=== PATIENT | female | born 1960 | race Caucasian/White ===

== ENCOUNTER 2016-10-06 02:12 | Emergency (ER) | payer BC ==
[2016-10-06] MEDS ORDERED: NS 0.9% 1000 ML* 1,000 ML IV ONE (02:25)
--- NOTE | 2016-10-06 02:44 | ED ---
Tyrel Dubois Billy, scribed for Robb Lee MD on 10/06/16 at 0244 . HPI Chest Pain - HPI Summary HPI Summary: Patient is a 56 year-old female coming to [facility] presenting with acute onset of left-lateral chest pressure today. She denies any abdominal pain or N/V, but she states she has had multiple episodes of diarrhea for the last 2 weeks. - History of Current Complaint Chief Complaint: EDChestPainROMI Time Seen by Provider: 10/06/16 02:20 Hx Obtained From: Patient Onset/Duration: Started Hours Ago, Still Present Timing: Intermittent Initial Severity: Moderate Current Severity: Moderate Chest Pain Location: Left Lateral Chest Pain Radiates: No Character: Pressure/Squeezing Aggravating Factor(s): Nothing Alleviating Factor(s): Nothing Associated Signs and Symptoms: Positive: Palpitations, Other: - near-syncope. Negative: Nausea, Abdominal Pain, Vomiting - Allergy/Home Medications Allergies/Adverse Reactions: Allergies Allergy/AdvReac Type Severity Reaction Status Date / Time No Known Allergies Allergy Verified 09/27/16 12:43 PMH/Surg Hx/FS Hx/Imm Hx Endocrine/Hematology History: Denies: Hx Diabetes, Hx Thyroid Disease Cardiovascular History: Denies: Hx Congestive Heart Failure, Hx Deep Vein Thrombosis, Hx Hypertension , Hx Myocardial Infarction, Hx Pacemaker/ICD Respiratory History: Denies: Hx Asthma, Hx Chronic Obstructive Pulmonary Disease (COPD), Hx Lung Cancer, Hx Pneumonia, Hx Pulmonary Embolism GI History: Denies: Hx Gall Bladder Disease, Hx Gastrointestinal Bleed, Hx Ulcer, Hx Urosepsis History: Denies: Hx Kidney Stones, Hx Renal Disease Neurological History: Denies: Hx Dementia, Hx Migraine, Hx Seizures, Hx Transient Ischemic Attacks (TIA) Psychiatric History: Denies: Hx Anxiety, Hx Depression, Hx Schizophrenia, Hx Bipolar Disorder - Cancer History Hx Chemotherapy: No Hx Radiation Therapy: No - Surgical History Surgery Procedure, Year, and Place: L knee; tubal ligation Infectious Disease History: No Infectious Disease History: Denies: Hx Hepatitis, Hx Human Immunodeficiency Virus (HIV), History Other Infectious Disease, Traveled Outside the [place] in Last 30 Days - Family History Known Family History: Positive: Cardiac Disease - father Family History: Mother: Breast CA. Father: Heart disease. Sister: Lupus. Ulcer. - Social History Alcohol Use: Occasionally Hx Substance Use: No Substance Use Type: Reports: None Hx Tobacco Use: No Smoking Status (MU): Never Smoked Tobacco Review of Systems Positive: Palpitations, Chest Pain Positive: Diarrhea. Negative: Abdominal Pain, Vomiting, Nausea All Other Systems Reviewed And Are Negative: Yes Physical Exam Triage Information Reviewed: Yes Vital Signs On Initial Exam: Initial Vitals Temp Pulse Resp BP Pulse Ox 98.2 F 73 14 135/75 97 10/06/16 02:29 10/06/16 02:29 10/06/16 02:29 10/06/16 02:10/06/16 02:29 Vital Signs Reviewed: Yes Appearance: Positive: Well-Appearing, No Pain Distress Skin: Positive: Warm Eyes: Positive: CAITY ENT: Positive: Hearing grossly normal Neck: Positive: Supple Respiratory/Lung Sounds: Positive: Clear to Auscultation, Breath Sounds Present Cardiovascular: Positive: Normal. Negative: Murmur Abdomen Description: Positive: Nontender, No Organomegaly, Soft Bowel Sounds: Positive: Present Musculoskeletal: Positive: Strength/ROM Intact Neurological: Positive: Sensory/Motor Intact, Alert, Oriented to Person Place, Time Psychiatric: Positive: Affect/Mood Appropriate AVPU Assessment: Alert Diagnostics - Vital Signs Vital Signs Temp Pulse Resp BP Pulse Ox 10/06/16 02:29 98.2 F 73 14 135/75 97 - Laboratory Result Diagrams: 10/06/16 02:15 10/06/16 02:15 Lab Statement: Any lab studies that have been ordered have been reviewed, and results considered in the medical decision making process. Re-Evaluation - Re-Evaluation First Eval Change: Improved Chest Pain Course/Dx - Diagnoses Provider Diagnoses: Diarrhea, Chest pain Discharge - Discharge Plan Condition: Stable Disposition: HOME Patient Education Materials: Chest Pain (ED) Referrals: Eugene Sánchez MD [Primary Care Provider] - The documentation as recorded by the Tyrel fine Billy accurately reflects the service I personally performed and the decisions made by , Robb Lee MD.
[2016-10-06 03:30] LABS: Urine Bacteria Absent (Absent); Urine Bilirubin Negative (Negative); Urine Glucose Negative (Negative); Urine Nitrite Negative (Negative)
[2016-10-06 03:36] LABS: Albumin 3.9 g/dL (3.2-5.2); BUN/Creatinine Ratio 18.5 (8-20); C Reactive Protein 4.68 mg/L (< 5.00); EGFR African American 94.1 (>60); EGFR Non-African American 73.1 (>60); Globulin 2.8 g/dL (2-4); Potassium 3.2 mmol/L (3.5-5.0); Total Bilirubin 1.3 mg/dL (0.2-1.0); Total Protein 6.7 g/dL (6.4-8.9)
[2016-10-06 03:37] LABS: Hematocrit 38 % (35-47); Hemoglobin 13.2 g/dl (12.0-16.0); Mean Corpuscular HGB Conc 35 g/dl (31-36); Mean Corpuscular Hemoglobin 32 pg (27-31); Mean Corpuscular Volume 92 fL (80-97); Mean Platelet Volume 9 um3 (7.4-10.4); Red Blood Count 4.12 10^6/ul (4.0-5.4); Red Cell Distribution Width 13 % (10.5-15); White Blood Count 4.7 10^3/ul (3.5-10.8)
[2016-10-06 05:12] VITALS: BP 135/72
--- NOTE | 2016-10-06 07:52 | RAD ---
INDICATION: Chest pain and shortness of breath COMPARISON: Similar chest x-ray dated December 23, 2015 TECHNIQUE: PA and lateral views of the chest were obtained. FINDINGS: The heart and mediastinum are normal in size and contour. The lungs are grossly clear. There is no evidence of large pleural effusion. Visualized bones are normal for the patient's age. There is no radiographic evidence of free air beneath the diaphragm IMPRESSION: No radiographic evidence of acute cardiopulmonary disease.
== END 2016-10-06 04:30 | disposition home or self-care (01) ==
LOC: ED 02:12
DX: R00.2 Palpitations (principal); R10.9 Unspecified abdominal pain; R07.9 Chest pain, unspecified; R19.7 Diarrhea, unspecified
CPT/HCPCS: 36415; 71020; 80053; 81003; 81015; 83605; 83690; 83735; 84484; 85025; 86140; 96360; 99283

== ENCOUNTER 2017-02-10 13:08 | Emergency (ER) | payer BC ==
[2017-02-10 13:20] VITALS: BP 137/79
[2017-02-10] MEDS ORDERED: Aspirin Low Dose CHEW TAB* 81 MG PO ONE (13:54)
--- NOTE | 2017-03-13 23:15 | UC ---
Brooklynn Dubois Matthew, scribed for Candice Long MD on 02/10/17 at 1353 . Cardiac HPI - HPI Summary HPI Summary: A 56 y/o female presents to with chest pain since an hour ago, which has resolved. The pain was rated 6/10 in severity and described as pressure. The symptoms started with numbness of the left arm and she continues to have constant arm numbness. She's also having waves of warmth intermittently that lasts for approximately a minute and feels like shes going to pass out. She denies any cardiac Hx. She had a cardiac work-up in September, which returned normal. 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 She also states that two days ago she had a facial blister, which bursted while in the shower. She's unsure of the cause of the blister. PMHx includes shingles. FHx of breast CA - mother sister, and prostate CA - father. Her father of an unknown heart problem. The patient works at [employer] and she only takes vitamins daily. - History of Current Complaint Chief Complaint: UCChestPain Stated Complaint: ARM NUMB FEELS LIKE PASSING OUT Hx Obtained From: Patient Onset/Duration: Sudden Onset, Lasting Hours, Resolved Timing: Intermittent Episodes Lasting: - minutes Initial Severity: Moderate Current Severity: Moderate Pain Intensity: 6 Chest Pain Location: Diffuse Character: Pressure/Squeezing Aggravating: Nothing Alleviating: Nothing Associated Signs & Symptoms: Positive: Chest Pain - described as pressure, Numbness - left arm - Allergy/Home Medications Allergies/Adverse Reactions: Allergies Allergy/AdvReac Type Severity Reaction Status Date / Time No Known Allergies Allergy Verified 02/10/17 13:20 PMH/Surg Hx/FS Hx/Imm Hx Endocrine History Of: Denies: Diabetes, Thyroid Disease, Hyperthyroidism, Hypothyroidism, Dyslipidemia Cardiovascular History Of: Denies: Cardiac Disorders, Hypertension, Pacemaker/ICD, Myocardial Infarction , Congestive Heart Failure, Atrial Fibrillation, Deep Vein Thrombosis, Bleeding Disorders Respiratory History Of: Denies: COPD, Asthma, Bronchitis, Pneumonia, Pulmonary Embolism GI/ History Of: Denies: Gastroesophageal Reflux, Ulcer, Gastrointestinal Bleed, Gall Bladder Disease, Kidney Stones, Diverticulitis, Renal Disease, Urosepsis Neurological History Of: Denies: TIA, CVA, Dementia, Seizures, Migraine Psychological History Of: Denies: Anxiety, Depression, Bipolar Disorder, Schizophrenia, Post Traumatic Stress Disorder Cancer History Of: Denies: Lung Cancer, Colorectal Cancer, Breast Cancer, Prostate Cancer, Cervical Cancer Other History Of: Negative For: HIV, Hepatitis B, Hepatitis C - Surgical History Surgical History: Yes Surgery Procedure, Year, and Place: L knee; tubal ligation - Family History Known Family History: Positive: None, Cardiac Disease - father Family History: Mother: Breast CA. Father: Heart disease. Sister: Lupus. Ulcer. - Social History Alcohol Use: Occasionally Substance Use Type: None Smoking Status (MU): Never Smoked Tobacco - Immunization History Most Recent Influenza Vaccination: 2016 Most Recent Tetanus Shot: utd Review of Systems Constitutional: Other - Intermittent waves of warmth Skin: Negative Eyes: Negative ENT: Negative Respiratory: Negative Cardiovascular: Chest Pain - described as pressure Gastrointestinal: Negative Genitourinary: Negative Motor: Negative Neurovascular: Negative Musculoskeletal: Negative Neurological: Numbness - left arm numbness Psychological: Negative All Other Systems Reviewed And Are Negative: Yes Physical Exam Triage Information Reviewed: Yes Appearance: Well-Nourished Vital Signs: Initial Vital Signs Temp 99 F 02/10/17 13:12 Pulse 69 02/10/17 13:12 Resp 16 02/10/17 13:12 BP 137/79 02/10/17 13:12 Pulse Ox 100 02/10/17 13:12 Vital Signs Reviewed: Yes Eyes: Positive: Conjunctiva Clear ENT: Positive: Normal ENT inspection Neck: Positive: Supple Respiratory: Positive: Chest non-tender, Lungs clear, Normal breath sounds Cardiovascular: Positive: RRR, No Murmur, Pulses Normal, Brisk Capillary Refill Abdomen Description: Positive: Nontender, No Organomegaly, Soft Bowel Sounds: Positive: Present Musculoskeletal Exam: Normal Musculoskeletal: Positive: Strength Intact Neurological Exam: Normal - nonfocal, grossly intact Psychological Exam: Normal - conversing easily and appropriately Skin Exam: Normal - no visible or reported rash - Assessment/Plan Course Of Treatment: Recommed further evaluation and management in the ED. Ms. Mars expresses understanding and agreement. I called the ED to advise. - Clinical Impression Provider Diagnoses: chest pain - Physician Notifications Discussed Patient Care With: Ailyn Archibald ([facility] [place] at 13:58 -- Notified of patient's history and accepts transfer of the patient. Discharge - Discharge Plan Condition: Stable Disposition: TRANS HIGHER LVL OF CARE FAC Discharge Disposition Comment: The patient needs further evaluation at the ED. Referrals: Non Staff,Doctor [Primary Care Provider] - The documentation as recorded by the Brooklynn fine Matthew accurately reflects the service I personally performed and the decisions made by me, Candice Long MD.
== END 2017-02-10 14:25 | disposition short-term general hospital (02) ==
LOC: UCEAST 13:08
DX: R07.89 Other chest pain (principal); R20.0 Anesthesia of skin
CPT/HCPCS: 99213; A9270-GY; G0463

== ENCOUNTER 2017-02-10 14:56 | Observation (INO) | payer BC ==
[2017-02-10] MEDS ORDERED: Aspirin Low Dose CHEW TAB* 81 MG PO ONE (15:34)
--- NOTE | 2017-02-10 16:07 | RAD ---
INDICATION: Chest pain. COMPARISON: Comparison is made with a prior chest x-ray study from October 06, 2016. TECHNIQUE: A portable view of the chest was obtained. FINDINGS: Cardiac and mediastinal contours appear to be within normal limits. The lungs are clear. No pleural effusion is seen. IMPRESSION: NO EVIDENCE FOR ACUTE DISEASE.
[2017-02-10 16:25] LABS: Albumin 4.4 g/dL (3.2-5.2); BUN/Creatinine Ratio 11.3 (8-20); Calcium 9.8 mg/dL (8.6-10.3); EGFR African American 109.5 (>60); EGFR Non-African American 85.2 (>60); Globulin 2.5 g/dL (2-4); Potassium 4.8 mmol/L (3.5-5.0); Total Bilirubin 0.7 mg/dL (0.2-1.0); Total Protein 6.9 g/dL (6.4-8.9)
[2017-02-10 16:32] LABS: Hematocrit 39 % (35-47); Hemoglobin 13.2 g/dl (12.0-16.0); Mean Corpuscular HGB Conc 34 g/dl (31-36); Mean Corpuscular Hemoglobin 32 pg (27-31); Mean Corpuscular Volume 94 fL (80-97); Red Blood Count 4.12 10^6/ul (4.0-5.4); Red Cell Distribution Width 13 % (10.5-15); White Blood Count 4.6 10^3/ul (3.5-10.8)
[2017-02-10 16:33] LABS: Add Diff/Slide Review? Slide Review Added; Comments Flag Yes
[2017-02-10 17:44] LABS: Mean Platelet Volume 10 um3 (7.4-10.4)
--- NOTE | 2017-02-10 18:12 | RAD ---
Indication: Left arm paresthesias. CT of the brain was performed without IV contrast. Ventricular structures are midline. No midline shift is noted. The extra-axial spaces are unremarkable. There is no evidence of intracranial mass or hemorrhage. Mastoid air cells and paranasal sinuses are otherwise unremarkable. IMPRESSION: No evidence of intracranial mass or hemorrhage is noted.
--- NOTE | 2017-02-10 19:56 | HP ---
H&P (Free Text) History and Physical: Date/Time of Evaluation: 02/10/20171954 CC: L arm pressure & pre-syncope HPI: Ms Mars is a 56YO healthy female who was at work this AM around 1100 when she suddenly developed a squeezing/pressure-like sensation in the L arm associated with episodic whole-body flushing, but no chest pain, SOB, nausea, or sweating. Neither has she change in vision/speech/swallow, focal W/N/T, or other issue. She relates a similar episode in September of this year attributed to anxiety. PMedHx denies Ambulatory Orders NK [No Home Medications Reported] 09/27/16 Allergies No Known Allergies Allergy (Verified 02/10/17 13:20) SocHx: no tobacco or recreational drugs, minimal alcohol; works at [employer] ; full code status FamHx: negative for early onset CAD/CVA; Sister passed of bowel perforation. Mother passed of aspiration pneumonia. ROS: as above, otherwise reviewed and all were negative Constitutional: NAD, normally developed, well-nourished white female vitals: Vital Signs Temp 37.6 C 02/10/17 15:15 Pulse 66 02/10/17 20:00 Resp 11 02/10/17 20:00 BP 138/78 02/10/17 20:00 Pulse Ox 98 02/10/17 20:00 Intake & Output 02/09/17 02/10/17 02/10/17 23:59 11:59 23:59 Weight 58.967 kg HEENM: atraumatic; sclera/conjunctiva: non-icteric/clear; hearing: clinically intact; oropharynx: clear, mucosa moist Neck: soft tissue: non-tender; thyroid: normal Pulmonary: clear to auscultation bilaterally, good aeration, no accessory muscle use CV: RR/RR, normal S1S2, no carotid bruit, no jugular venous distention, 2+ B DP/ PT, no edema Abdominal: soft, non-distended, non-tender, no rebound/guarding/rigidity, normoactive bowel sounds, no hepatosplenomegaly or masses, no costovertebral angle tenderness Musculoskeletal: general: grossly intact; gait: stable Integumental: normal appearance and texture of exposed skin Psychiatric orientation: AA&O to PPS affect: calm to mildly anxious mood: pleasant eye contact: good content: reliable responses: timely insight: good Testing: Lab Results 02/10/17 02/10/17 02/10/17 Range/Units 15:50 15:50 15:50 WBC 4.6 (3.5-10.8) 10^3/ul RBC 4.12 (4.0-5.4) 10^6/ul Hgb 13.2 (12.0-16.0) g/dl Hct 39 (35-47) % MCV 94 (80-97) fL MCH 32 H (27-31) pg MCHC 34 (31-36) g/dl RDW 13 (10.5-15) % Plt Count 142 L (150-450) 10^3/ul MPV 10 (7.4-10.4) um3 Neut % (Auto) 63.2 (38-83) % Lymph % (Auto) 25.3 (25-47) % Petroleum % (Auto) 9.0 (1-9) % Eos % (Auto) 1.9 (0-6) % Baso % (Auto) 0.6 (0-2) % Absolute Neuts (auto) 2.9 (1.5-7.7) 10^3/ul Absolute Lymphs (auto) 1.2 (1.0-4.8) 10^3/ul Absolute Monos (auto) 0.4 (0-0.8) 10^3/ul Absolute Eos (auto) 0.1 (0-0.6) 10^3/ul Absolute Basos (auto) 0 (0-0.2) 10^3/ul Absolute Nucleated RBC 0 10^3/ul Nucleated RBC % 0.1 Sodium 142 (133-145) mmol/L Potassium 4.8 (3.5-5.0) mmol/L Chloride 110 (101-111) mmol/L Carbon Dioxide 28 (22-32) mmol/L Anion Gap 4 (2-11) mmol/L BUN 8 (6-24) mg/dL Creatinine 0.71 (0.51-0.95) mg/dL Est GFR ( Amer) 109.5 (>60) Est GFR (Non-Af Amer) 85.2 (>60) BUN/Creatinine Ratio 11.3 (8-20) Glucose 93 (70-100) mg/dL Lactic Acid 1.3 (0.5-2.0) mmol/L Calcium 9.8 (8.6-10.3) mg/dL Total Bilirubin 0.70 (0.2-1.0) mg/dL AST 17 (13-39) U/L ALT 13 (7-52) U/L Alkaline Phosphatase 77 (34-104) U/L Troponin I 0.00 (<0.04) ng/mL Total Protein 6.9 (6.4-8.9) g/dL Albumin 4.4 (3.2-5.2) g/dL Globulin 2.5 (2-4) g/dL Albumin/Globulin Ratio 1.8 (1-3) 05/16/17 Range/Units 18:05 WBC (3.5-10.8) 10^3/ul RBC (4.0-5.4) 10^6/ul Hgb (12.0-16.0) g/dl Hct (35-47) % MCV (80-97) fL MCH (27-31) pg MCHC (31-36) g/dl RDW (10.5-15) % Plt Count (150-450) 10^3/ul MPV (7.4-10.4) um3 Neut % (Auto) (38-83) % Lymph % (Auto) (25-47) % Petroleum % (Auto) (1-9) % Eos % (Auto) (0-6) % Baso % (Auto) (0-2) % Absolute Neuts (auto) (1.5-7.7) 10^3/ul Absolute Lymphs (auto) (1.0-4.8) 10^3/ul Absolute Monos (auto) (0-0.8) 10^3/ul Absolute Eos (auto) (0-0.6) 10^3/ul Absolute Basos (auto) (0-0.2) 10^3/ul Absolute Nucleated RBC 10^3/ul Nucleated RBC % Sodium (133-145) mmol/L Potassium (3.5-5.0) mmol/L Chloride (101-111) mmol/L Carbon Dioxide (22-32) mmol/L Anion Gap (2-11) mmol/L BUN (6-24) mg/dL Creatinine (0.51-0.95) mg/dL Est GFR ( Amer) (>60) Est GFR (Non-Af Amer) (>60) BUN/Creatinine Ratio (8-20) Glucose (70-100) mg/dL Lactic Acid (0.5-2.0) mmol/L Calcium (8.6-10.3) mg/dL Total Bilirubin (0.2-1.0) mg/dL AST (13-39) U/L ALT (7-52) U/L Alkaline Phosphatase (34-104) U/L Troponin I 0.00 (<0.04) ng/mL Total Protein (6.4-8.9) g/dL Albumin (3.2-5.2) g/dL Globulin (2-4) g/dL Albumin/Globulin Ratio (1-3) ECG, personally reviewed: NSR rate 68, no ischemia CXR, personally reviewed: IMPRESSION: NO EVIDENCE FOR ACUTE DISEASE. CT brain WO, personally reviewed: IMPRESSION: No evidence of intracranial mass or hemorrhage is noted. Impression: 56F presenting with possible anginal equivalent for r/o ACS DIAGNOSIS & PLAN Primary possible anginal equivalent r/o ACS : telemetry : eNST in AM : trend troponin : supplemental oxygen : aspirin : metoprolol : supportive care Admission Rational: CDU observation for r/o ACS DVTp: PRAVEEN Code Status: full
[2017-02-10] MEDS ORDERED: Metoprolol Tartrate TAB* 25 MG PO ONE (21:58)
[2017-02-10] MEDS ORDERED: Melatonin (NF) 3 MG TAB PO PRN (22:00)
[2017-02-10] MEDS ORDERED: Ondansetron INJ* 2 MG/ML VIAL IV PRN (22:00)
[2017-02-11] MEDS ORDERED: Omeprazole CAP* 20 MG PO SCH (06:00)
[2017-02-11 07:27] VITALS: BP 119/74
--- NOTE | 2017-02-11 12:22 | RAD ---
Edited for charges. INDICATION: LEFT arm pressure. Near syncope. Family history of heart disease. COMPARISON: No relevant prior exams available on the [facility] PACS for comparison. TECHNIQUE: 10.300 mCi of Tc-99m Myoview were administered IV. SPECT images of the heart were obtained. Later on the same day, under the direction of Dr. Hayward, an exercise stress test was performed. The patient achieved a peak heart rate of 146 bpm, 89 % of the age- predicted maximum. Subsequently, the patient was given an IV injection of 25.700 mCi Tc- 99m Myoview. SPECT images of the heart were obtained and a gated wall motion study was performed. FINDINGS: Gated wall motion images were obtained at stress and demonstrate wall motion to be within normal limits. The calculated left ventricular ejection fraction is 70 % at stress. Estimated LEFT ventricular end diastolic volume is 68 mL. TID 1.06. Based on review of the attenuation corrected and non corrected images the distribution of radiopharmaceutical within the myocardium on the stress and rest images is within normal limits. No fixed or reversible regions of hypoperfusion evident. IMPRESSION: 1. No evidence for stress induced myocardial ischemia or presence of an infarct. 2. Normal left ventricular wall motion and ejection fraction. ASSESSMENT: Low risk Based on imaging criteria from ACC/AHA 2002 Guideline Update for the Management of Patients With Chronic Stable Angina Table 23. Noninvasive Risk Stratification. MTDD
--- NOTE | 2017-02-12 02:29 | DS ---
DISCHARGE SUMMARY: DATE OF ADMISSION: 02/10/17 DATE OF DISCHARGE: 02/11/17 PRIMARY CARE PROVIDER: [facility]. PRINCIPAL DIAGNOSES: Noncardiac chest pain and presyncope. DISCHARGE MEDICATIONS: None. HOSPITAL COURSE: Ms. Mars is a 56-year-old female who has no significant past medical history who presents to the emergency room with complaints of squeezing , pressure like, discomfort in the left arm with episodic whole body flushing. The patient had an episode similar to this in September of this year that was attributed to anxiety. Given her symptoms, the decision was made to admit the patient to rule out an acute coronary syndrome. The patient was ruled out an acute coronary syndrome with serial troponins. She underwent an exercise nuclear stress test on the day of discharge that did not reveal any evidence for stress induced myocardial ischemia or infarct. At this point, it was felt the patient is stable for discharge home. On the day of discharge, the patient was awake, alert, and oriented, sitting up in bed, in no acute distress. Her cardiac exam revealed a normal S1, S2 with a regular rate and rhythm and no murmurs. Her pulmonary exam was clear to auscultation bilaterally. Her abdomen was soft and nontender, nondistended and bowel sounds were present. The patient again is stable and ready for discharge home. We did discuss the fact that while acute coronary syndrome was ruled out, we do not have a great explanation of why she developed the squeezing, arm discomfort and flushing. She will continue to monitor her symptoms. FOLLOWUP CONCERNS: The patient is being discharged home today, 02/11/17. She is to follow up with [facility] in the next 4 to 7 days. ACTIVITY LEVEL: As tolerated. DIET: Regular. CONDITION ON DISCHARGE: Stable. TIME SPENT: 25 minutes were spent discharging this patient. CC: [facility]* [id number]/[facility] #: [id number] MARTINEZ
--- NOTE | 2017-02-13 07:01 | ED ---
riky Dubois Timothy, scribed for Jarrod Serrato MD on 02/10/17 at 1612 . Neurological HPI - HPI Summary HPI Summary: Luz Marina Mars is a 56 yo female presenting to [facility] with left arm numbness since 1200, resolving per triage, sent here by [facility]. Pt self-medicated with ASA 324 mg [employer]. She states the numbness was intermittent, and only lasted a few minutes at a time. She denies any N/V/D, SOB, CP. Her MHx includes left knee arthroscopy, tubal ligation. her PCP is [facility]. - History of Current Complaint Chief Complaint: EDNeurologicalDeficit Stated Complaint: CHEST PAIN,COMING FROM CC` Time Seen by Provider: 02/10/17 15:28 Last Known Well Date: 02/09/17 Hx Last Menstrual Period: MENOPAUSE Onset/Duration: Sudden Onset, Started hours ago Timing: Intermittent Episodes Lasting: Onset Severity: Moderate Current Severity: Moderate Neurological Deficit Location: LUE - numbness Pain Intensity: 0 Pain Scale Used: 0-10 Numeric Character: Numbness/Tingling - LUE Associated Signs and Symptoms: Positive: Numbness - LUE - Allergy/Home Medications Allergies/Adverse Reactions: Allergies Allergy/AdvReac Type Severity Reaction Status Date / Time No Known Allergies Allergy Verified 02/10/17 13:20 PMH/Surg Hx/FS Hx/Imm Hx Endocrine/Hematology History: Denies: Hx Diabetes, Hx Thyroid Disease Cardiovascular History: Denies: Hx Congestive Heart Failure, Hx Deep Vein Thrombosis, Hx Hypertension , Hx Myocardial Infarction, Hx Pacemaker/ICD Respiratory History: Denies: Hx Asthma, Hx Chronic Obstructive Pulmonary Disease (COPD), Hx Lung Cancer, Hx Pneumonia, Hx Pulmonary Embolism GI History: Denies: Hx Gall Bladder Disease, Hx Gastrointestinal Bleed, Hx Ulcer, Hx Urosepsis History: Denies: Hx Kidney Stones, Hx Renal Disease Neurological History: Denies: Hx Dementia, Hx Migraine, Hx Seizures, Hx Transient Ischemic Attacks (TIA) Psychiatric History: Denies: Hx Anxiety, Hx Depression, Hx Schizophrenia, Hx Bipolar Disorder - Cancer History Hx Chemotherapy: No Hx Radiation Therapy: No - Surgical History Surgery Procedure, Year, and Place: L knee; tubal ligation Infectious Disease History: No Infectious Disease History: Denies: Hx Hepatitis, Hx Human Immunodeficiency Virus (HIV), History Other Infectious Disease, Traveled Outside the [place] in Last 30 Days - Family History Known Family History: Positive: Cardiac Disease - father, Hypertension Negative: Diabetes Family History: Mother: Breast CA. Father: Heart disease. Sister: Lupus. Ulcer. - Social History Alcohol Use: Occasionally Hx Substance Use: No Substance Use Type: Reports: None Hx Tobacco Use: No Smoking Status (MU): Never Smoked Tobacco Review of Systems Constitutional: Negative Negative: Fever, Chills Eyes: Negative Negative: Erythema ENT: Negative Negative: Sore Throat Cardiovascular: Negative Negative: Palpitations, Chest Pain Respiratory: Negative Negative: Shortness Of Breath, Cough Gastrointestinal: Negative Negative: Abdominal Pain, Vomiting, Nausea Genitourinary: Negative Negative: dysuria, hematuria Musculoskeletal: Negative Negative: Edema - legs Skin: Negative Negative: Rash Positive: Numbness - LUE Psychological: Normal All Other Systems Reviewed And Are Negative: Yes Physical Exam - Summary Physical Exam Summary: Constitutional: Well-developed, Well-nourished, Alert. (-) Distressed Skin: Warm, Dry HENT: Eyes: Conjunctiva normal Neck: Musculoskeletal ROM normal neck. (-) JVD, (-) Stridor, (-) Tracheal deviation Cardio: Rhythm regular, rate normal, Heart sounds normal; Intact distal pulses; The pedal pulses are 2+ and symmetric. Radial pulses are 2+ and symmetric. (-) Murmur Pulmonary/Chest wall: Effort normal. (-) Respiratory distress, (-) Wheezes, (-) Rales Abd: Soft. (-) Tenderness, (-) Distension, (-) Guarding, (-) Rebound Musculoskeletal: (-) Edema Lymph: (-) Cervical adenopathy Neuro: Alert, Oriented x3, Strength normal, Cranial nerves II-XII are grossly intact. (-) Dysmetria, (-) Nystagmus, (-) Ataxia by finger to nose testing, (-) Sensory deficit. Psych: Mood and affect Normal Triage Information Reviewed: Yes Vital Signs On Initial Exam: Initial Vitals Temp Pulse Resp BP Pulse Ox 99.3 F 61 16 150/83 100 02/10/17 14:57 02/10/17 14:57 02/10/17 14:57 02/10/17 14:57 02/10/17 14:57 Vital Signs Reviewed: Yes - Garrett Coma Scale Coma Scale Total: 15 Diagnostics - Vital Signs Vital Signs Temp Pulse Resp BP Pulse Ox 02/10/17 15:15 99.7 F 60 12 141/89 97 02/10/17 14:57 99.3 F 61 16 150/83 100 - Laboratory Result Diagrams: 02/10/17 15:50 02/10/17 15:50 Lab Statement: Any lab studies that have been ordered have been reviewed, and results considered in the medical decision making process. - Radiology CXR Xray Interpretation: No Acute Changes - IMPRESSION: NO EVIDENCE FOR ACUTE DISEASE. Radiology Interpretation Completed By: Radiologist - CT Brain CT Interpretation: No Acute Changes - IMPRESSION: No evidence of intracranial mass or hemorrhage is noted. CT Interpretation Completed By: Radiologist - EKG 1509 Cardiac Rate: Bradycardia - 59 BPM EKG Interpretation: Sinus bradycardia @ 59 BPM, no STEMI, normal EKG. Course/Dx - Course Assessment/Plan: Luz Marina Mars is a 56 yo female presenting to [facility] with numbness in her left arm since 1200, sent by [facility]. In the ED she was given ASA. Her CXR suggests no evidence of acute disease. Her CT Brain suggests no evidence of intracranial mass or hemorrhage. Her EKG suggests sinus bradycardia. Pt was advised that admission may be the best option for her. After clinical examination and review of her lab and imaging studies, as well as discussion with Dr. Shah, she will be admitted to [facility] with paristhesia and flushing. - Differential Dx Differential Diagnoses Neuro: Positive: Cerebrovascular Accident, Other - MA - Diagnoses Provider Diagnoses: Arm paresthesia, left, Flushing - Physician Notifications Discussed Care of Patient With: 1835 - Dr. Shah (hospitalist) - discussed Pt condition, agrees to admit Pt. Instructed by Provider To: Admit As Inpatient Discharge - Discharge Plan Condition: Stable Disposition: ADMITTED TO [facility] Discharge Disposition Comment: left arm parasthesia, flushing The documentation as recorded by the riky fine Timothy accurately reflects the service I personally performed and the decisions made by me, Jarrod Serrato MD.
== END 2017-02-11 15:22 | disposition home or self-care (01) ==
LOC: ED 14:56 → MEDTELE 20:47
PROVIDERS: ADMIT Hospitalist; ATTEND Hospitalist
DX: R07.89 Other chest pain (principal); R55 Syncope and collapse; R20.9 Unspecified disturbances of skin sensation; R00.1 Bradycardia, unspecified
CPT/HCPCS: 36415; 70450; 71010; 78452; 80053; 83605; 84484; 85025; 93005; 93017; 99283; A9502; G0378

== ENCOUNTER 2018-07-20 12:48 | Emergency (ER) | payer BC ==
[2018-07-20 14:16] VITALS: BP 140/72
--- NOTE | 2018-07-20 15:05 | UC ---
[facility] Dental HPI - HPI Summary HPI Summary: 58-year-old female presents with 2-3 day history of left upper dental pain. She has noticed some bleeding with brushing her teeth. Denies fever, chills, facial swelling, trismus, or drainage. She does not presently have an appointment with the dentist. - History of Current Complaint Chief Complaint: UCDentalProblem Stated Complaint: TOOTHACHE Time Seen by Provider: 07/20/18 14:41 Hx Obtained From: Patient Hx Last Menstrual Period: MENOPAUSE Onset/Duration: Gradual Onset, Lasting Days - 2-3 Severity: Moderate Pain Intensity: 5 Aggravating Factor(s): Nothing Alleviating Factor(s): Nothing - Allergies/Home Medications Allergies/Adverse Reactions: Allergies Allergy/AdvReac Type Severity Reaction Status Date / Time No Known Allergies Allergy Verified 07/22/18 09:47 PMH/Surg Hx/FS Hx/Imm Hx Previously Healthy: Yes - Denies significant PMH denies significant past medical history Other History Of: Negative For: HIV, Hepatitis B, Hepatitis C - Surgical History Surgical History: Yes Surgery Procedure, Year, and Place: L knee; tubal ligation +20years ago - Family History Known Family History: Positive: None, Cardiac Disease - father, Hypertension Negative: Diabetes Family History: Mother: Breast CA. Father: Heart disease. Sister: Lupus. Ulcer. - Social History Occupation: Employed Full-time Lives: With Family Alcohol Use: Occasionally Substance Use Type: None Smoking Status (MU): Never Smoked Tobacco Have You Smoked in the Last Year: No - Immunization History Most Recent Influenza Vaccination: 2016 Most Recent Tetanus Shot: utd Review of Systems Constitutional: Negative Skin: Negative ENT: Dental Pain Respiratory: Negative Cardiovascular: Negative Is Patient Immunocompromised?: No All Other Systems Reviewed And Are Negative: Yes Physical Exam Triage Information Reviewed: Yes Appearance: Well-Appearing, No Pain Distress, Well-Nourished Vital Signs: Initial Vital Signs Temp 99.9 F 07/20/18 14:11 Pulse 86 07/20/18 14:11 Resp 16 07/20/18 14:11 BP 140/72 07/20/18 14:11 Pulse Ox 100 07/20/18 14:11 Vital Signs Reviewed: Yes ENT: Positive: Pharynx normal, Uvula midline, Other - No facial swelling noted. TMJ nontender without clicks or catching.. Negative: Trismus Dental: Positive: Other: - Multiple dental caries noted throughout. Severe plaque build up at the gum line of #14 with mild gingival erythema. Mild tenderness at same site without induration or fluctuance. Neck: Positive: Supple, Nontender, No Lymphadenopathy Respiratory: Positive: Lungs clear, Normal breath sounds, No respiratory distress Cardiovascular: Positive: RRR, No Murmur Neurological: Positive: Alert Skin Exam: Normal Dental Complaint Course/Dx - Course Course Of Treatment: 58 year old female with 2-3 day history of left upper dental pain. Multiple dental caries throughout and some mild gingival erythema noted at base of #14. Will start on antibiotic for dental infection. Patient is to schedule dental appointment at next available. Recommend NSAIDs for pain management. Warning symptoms reviewed. Patient verbalizes understanding and agrees with POC. - Differential Dx/Diagnosis Differential Diagnosis/Dx: Dental Abscess, Dental Caries, Odontogenic Pain, Peridontic Disease Provider Diagnoses: Dental pain Discharge - Sign-Out/Discharge Documenting (check all that apply): Patient Departure All imaging exams completed and their final reports reviewed: No Studies - Discharge Plan Condition: Stable Disposition: HOME Prescriptions: Amoxicillin PO (*) [Amoxicillin 875 MG (*)] 875 mg PO BID #20 tab Patient Education Materials: Toothache (ED) Referrals: Ministerio Pisano MD [Primary Care Provider] - (For blood pressure check within 4 weeks.) Additional Instructions: We will start you on an antibiotic to treat for a possible dental infection. Take amoxicillin 875 mg 1 tab twice a day for 10 days. Take with food to avoid upset stomach. Be sure to finish the entire course of antibiotic even if you are feeling better. Take over the counter acetaminophen (Tylenol) or ibuprofen (Advil, Motrin) according to directions as needed for pain. Use salt water rinses after every meal and at bedtime. Make an appointment with dentist at next available appointment. Seek immediate medical attention in the emergency room if you develop fever greater than 100.5 F, have facial swelling, are unable to open your mouth, difficulty swallowing, difficulty breathing, or any worsening of symptoms. - Billing Disposition and Condition Condition: STABLE Disposition: Home
== END 2018-07-20 15:14 | disposition home or self-care (01) ==
LOC: UCEAST 12:48
DX: K08.89 Other specified disorders of teeth and supporting structures (principal)
CPT/HCPCS: 99212; G0463

== ENCOUNTER 2018-07-22 09:39 | Emergency (ER) | payer BC ==
--- NOTE | 2018-07-22 10:05 | ED ---
Shortness of Breath - HPI Summary HPI Summary: A 58 y/o female presents to the ED c/o SOB since this morning. She denies any fever, chills, N/V. She also c/o CP since yesterday morning that she describes as a pressure, not sharp and that she felt like her heart was racing she can' t get a full breath. She also has a bruise on the inside of her left thigh of unknown origin but states that it does not hurt. The pt has been taking amoxicillin since she had jaw pain starting 07/20/2018. She reports that her symptoms started after starting on the amoxicillin and so she is wondering if this ius related. Pt denies smoking. - History of Current Complaint Chief Complaint: EDChestPainROMI Time Seen by Provider: 07/22/18 09:52 Hx Obtained From: Patient Onset/Duration: Sudden Onset, Lasting Days, Still Present Current Severity: Moderate Associated Signs & Symptoms: Chest Pain Unrelated to Cough - Allergy/Home Medications Allergies/Adverse Reactions: Allergies Allergy/AdvReac Type Severity Reaction Status Date / Time No Known Allergies Allergy Verified 07/22/18 09:47 PMH/Surg Hx/FS Hx/Imm Hx Previously Healthy: Yes Endocrine/Hematology History: Denies: Hx Diabetes, Hx Thyroid Disease Cardiovascular History: Reports: Hx Angina - tightness flushed feeling Denies: Hx Congestive Heart Failure, Hx Deep Vein Thrombosis, Hx Hypertension , Hx Myocardial Infarction, Hx Pacemaker/ICD Respiratory History: Denies: Hx Asthma, Hx Chronic Obstructive Pulmonary Disease (COPD), Hx Lung Cancer, Hx Pneumonia, Hx Pulmonary Embolism GI History: Denies: Hx Gall Bladder Disease, Hx Gastrointestinal Bleed, Hx Ulcer, Hx Urosepsis History: Denies: Hx Kidney Stones, Hx Renal Disease Sensory History: Denies: Hx Contacts or Glasses, Hx Hearing Aid Opthamlomology History: Denies: Hx Contacts or Glasses Neurological History: Denies: Hx Dementia, Hx Migraine, Hx Seizures, Hx Transient Ischemic Attacks (TIA) Psychiatric History: Denies: Hx Anxiety, Hx Depression, Hx Schizophrenia, Hx Bipolar Disorder - Cancer History Hx Chemotherapy: No Hx Radiation Therapy: No - Surgical History Surgery Procedure, Year, and Place: L knee; tubal ligation +20years ago Infectious Disease History: No Infectious Disease History: Denies: Hx Hepatitis, Hx Human Immunodeficiency Virus (HIV), History Other Infectious Disease, Traveled Outside the [place] in Last 30 Days - Family History Known Family History: Positive: Cardiac Disease - father, Hypertension Negative: Diabetes Family History: Mother: Breast CA. Father: Heart disease. Sister: Lupus. Ulcer. - Social History Alcohol Use: Occasionally Hx Substance Use: No Substance Use Type: Reports: None Hx Tobacco Use: No Smoking Status (MU): Never Smoked Tobacco Have You Smoked in the Last Year: No Review of Systems Negative: Fever, Chills Positive: Chest Pain Positive: Shortness Of Breath Negative: Vomiting, Nausea All Other Systems Reviewed And Are Negative: Yes Physical Exam - Summary Physical Exam Summary: GENERAL: Patient is a well-developed and nourished Female who is lying comfortable in the stretcher. Patient is not in any acute respiratory distress. HEAD AND FACE: Normocephalic EYES: PERRLA, EOMI x 2. EARS: Hearing grossly intact. MOUTH: Oropharynx within normal limits. NECK: Supple, trachea is midline, no adenopathy, no JVD, no carotid bruit. CHEST: Symmetric, no tenderness at palpation LUNGS: Clear to auscultation bilaterally. No wheezing or crackles. CVS: Regular rate and rhythm, S1 and S2 present, no murmurs or gallops appreciated. ABDOMEN: Soft, non-tender. Bowel sounds are normal. No abdominal abnormal pulsations. EXTREMITIES: Bruise of left medial inner thigh, Full ROM in all major joints, no edema, no cyanosis or clubbing. NEURO: Alert and oriented x 3. No acute neurological deficits. Speech is normal and follows commands. SKIN: Dry and warm Triage Information Reviewed: Yes Vital Signs On Initial Exam: Initial Vitals Temp Pulse Resp BP Pulse Ox 97.9 F 67 16 173/89 99 07/22/18 09:40 07/22/18 09:40 07/22/18 09:40 07/22/18 09:40 07/22/18 09:40 Vital Signs Reviewed: Yes Diagnostics - Vital Signs Vital Signs Temp Pulse Resp BP Pulse Ox 07/22/18 09:40 97.9 F 67 16 173/89 99 - Laboratory Result Diagrams: 07/22/18 10:15 07/22/18 10:15 Lab Statement: Any lab studies that have been ordered have been reviewed, and results considered in the medical decision making process. - Radiology CXR Radiology Interpretation Completed By: Radiologist - #. No evidence for acute intrathoracic disease. #. Potential chronic obstructive pulmonary disease. This report has been reviewed by the ED physician. - EKG 09:48 Cardiac Rate: NL - 64 bpm EKG Rhythm: Sinus Rhythm Summary of EKG Findings: normal axis 1409 Cardiac Rate: NL - 62 bpm EKG Rhythm: Sinus Rhythm EKG Comparison: No Significant Change Summary of EKG Findings: Normal axis. Unchanged from previous EKG. Re-Evaluation - Re-Evaluation First Eval Re-Evaluation Time: 14:04 Change: Unchanged Comment: Discussing results with pt and possibility of waiting for third troponin. Pt prefers to be discharged. Pt will wait for EKG and be D/C home if normal. Course/Dx - Course Course Of Treatment: 58 y/o female presents to the ED c/o CP and SOB. Workup is unremarkable and within 2 sets of troponin, d-dimer, 2 completely normal EKGs. Patient diagnosis of chest tightness and SOB. Patient is low risk for ACS by HEART score. Patient is hemodynamically stable and is safe for discharge home with strict return precautions and will otherwise follow-up with cardiology. I told patient that if she takes another dose of amoxicillin and notices symptoms then she should discontinue it. - Diagnoses Provider Diagnoses: Chest tightness, Shortness of breath Discharge - Sign-Out/Discharge Documenting (check all that apply): Patient Departure - DC - Discharge Plan Condition: Stable Disposition: HOME Patient Education Materials: Chest Pain (ED), Shortness of Breath (ED) Referrals: Ministerio Pisano MD [Primary Care Provider] - (1-3 days) Jodie Hayward MD [Medical Doctor] - (1-3 days) Additional Instructions: Follow up with your primary care physician in 1-3 days. RETURN TO THE EMERGENCY DEPARTMENT FOR CHANGING OR WORSENING SYMPTOMS. Follow up with Dr. Hayward, senior chemist, in 1-3 days. - Billing Disposition and Condition Condition: STABLE Disposition: Home - Attestation Statements Document Initiated by Scribe: Yes Documenting Scribe: Cachorro Shafer Provider For Whom Scribe is Documenting (Include Credential): Saul Yoon MD Scribe Attestation: ICachorro, scribed for Saul Yoon MD on 07/22/18 at 1835. Scribe Documentation Reviewed: Yes Provider Attestation: The documentation as recorded by the scribe, Cachorro Shafer accurately reflects the service I personally performed and the decisions made by me, Manuela Yoon MD
[2018-07-22 10:32] LABS: ABS Basophils 0 10^3/ul (0-0.2); ABS Eosinophils 0.2 10^3/ul (0-0.6); ABS Lymphocytes 0.7 10^3/ul (1.0-4.8); ABS Monocytes 0.4 10^3/ul (0-0.8); ABS Neutrophils 3.8 10^3/ul (1.5-7.7); ABS Nucleated RBC 0 10^3/ul; Eosinophil % 3.9 % (0-6); Hematocrit 39 % (35-47); Hemoglobin 14.2 g/dl (12.0-16.0); Lymphocyte % 13.6 % (25-47); Mean Corpuscular HGB Conc 36 g/dl (31-36); Mean Corpuscular Hemoglobin 34 pg (27-31); Mean Corpuscular Volume 94 fL (80-97); Nucleated Red Blood Cells % 0; Platelet Count 226 10^3/ul (150-450); Red Blood Count 4.16 10^6/ul (4.00-5.40); Red Cell Distribution Width 13 % (10.5-15); White Blood Count 5.1 10^3/ul (3.5-10.8)
[2018-07-22 10:34] LABS: INR 0.85 (0.77-1.02)
--- NOTE | 2018-07-22 10:43 | RAD ---
Indication: Chest pain /pressure. Comparison: February 10, 2017 and October 06, 2016 Technique: Upright AP 1023 hours Report: Unchanged mild prominence of the lower lung zone interstitial markings. No focal pulmonary lesion, compelling alveolar consolidation, pleural effusion, pneumothorax. The heart, pulmonary vasculature, and mediastinal contours are unremarkable. IMPRESSION: #. No evidence for acute intrathoracic disease. #. Potential chronic obstructive pulmonary disease.
[2018-07-22 10:51] LABS: EGFR Non-African American 67.8 (>60)
[2018-07-22] MEDS ORDERED: Albuterol/Ipratropium NEB.SOL* Albuterol 2.5 MG/Ipratropium 0.5 MG 3 ML INH ONE (12:22)
[2018-07-22 14:23] VITALS: BP 131/82
== END 2018-07-22 14:23 | disposition home or self-care (01) ==
LOC: ED 09:39
DX: R07.89 Other chest pain (principal); R06.02 Shortness of breath
CPT/HCPCS: 36415; 71045; 80053; 82553; 83605; 83735; 83880; 84439; 84443; 84484; 85025; 85379; 85610; 85730; 93005; 99282; A9270-GY

== ENCOUNTER 2019-01-10 12:15 | Emergency (ER) | payer BC ==
--- OUTSIDE RECORDS SUMMARY | 2019-01-10 12:29 | XMS REPORT | Continuity of Care Document ---
:1960 External Reference #:[id number] Author Name Diamond Pandey M.D. Address [address] [place] [address] Care Team Providers Name Role Phone Diamond Pandey M.D. Care Team Information Trial Paralegal Unavailable Diamond Pandey M.D. Primary Care Physician Unavailable Payers Date Identification Numbers Payment Provider Subscriber Effective: 2017 Policy Number: [id number] / Of [employer] PayID: [id number] [address] [address] [place] [address] Advance Directives Description No Information Available Problems Date Description Provider Status Onset: 07/17/2011 Sensory function status: taste Yamilet Hedrick M.D. Resolved and smell Resolved: 02/24/2017 Onset: 07/17/2011 Diabetes mellitus screening Yamilet Hedrick M.D. Resolved Resolved: 02/24/2017 Onset: 07/17/2011 Hyperlipidemia screening Yamilet eHdrick M.D. Resolved Resolved: 02/24/2017 Onset: 02/01/2014 Epigastric pain Jj Sanders M.D. Resolved Resolved: 02/24/2017 Family History Date Family Member(s) Observation Comments Father due to CAD () - age 72. CHF. Smoker but had quit 40 years prior to CHF. Mother due to Aspiration () after surgery Mother Breast Cancer ~55 Number of Siblings Siblings: 3 2 living sisters, 1 First Sister age 57 due to perforated ulcer. Lupus. Second Sister Breast Cancer 61 s/p radiation Maternal Grandmother due to Diabetes () Social History Type Date Description Comments Sex Unknown Marital Status Patient is --April 2011 Living Situation Lives with daughter Diet Diet is healthy and well balanced Sleep Typically sleeps 6 hours a night. 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 Sun Exposure Uses sunscreen Allergies, Adverse Reactions, Alerts Description No Known Drug Allergies Medications Medication Date Status Form Strength Qnty SIG Indications Ordering Provider Cyclobenzaprine 12/16 Active Tablets 5mg 30tab /-1 M79.10 s tablet Piercy, every M.D. night at bedtime as needed No Active 12/16 Hx Unknown Medications - 12/16 No Active 11/18 Hx Unknown Medications - 11/18 Ciprofloxacin 11/18 Hx Tablets 500mg 10tab 1 by N39.0 Zenaida Ramona HCL s mouth Ruiz, [employer] G[employer]ING [employer] PERSON - twice a /2018 Bactrim DS 07/27 Hx Tablets 800-160mg 14tab 1 by K05.01 s mouth Piercy, - twice a M.D. 11/18 day x week Nystatin 07/27 Hx Suspension [id number] 250ml 5 B37.9 t/ML millilite Piercy, - rs swish M.D. 11/18 and spit /2018 orally four times a day until clears No Active 03/08 Hx Unknown Medications - 07/27 Valacyclovir HCL 01/28 Hx Tablets 1gm 21tab take B02.9 Mireille s tablets Joanne, - three [employer]NAGER [employer] 03/08 times a day for 7d No Active 10/15 Hx Diamond Medications Dannie, - M.D. 01/28 Meclizine HCL 03/13 Hx Tablets 12.5mg 30tab 1 tab tid 461.9 s prn Dannie, - M.D. 10/15 No Active 06/03 Hx Unknown Medications /2015 - 03/13 Penicillin V 02/28 Hx Tablets 500mg 20tab 1 by 034.0 Kami Potassium s mouth Desiree, - twice a Afnp-C 03/10 day x days Sulfamethoxazole 07/13 Hx Tablets 800-160mg 10tab 1 by 599.0 Judy /Trimethoprim s mouth Brown, [employer]ING [employer] PERSON - twice a 07/18 day x days Omeprazole 01/[address] 20mg 90cap 1 po qd 530.81 Dinah L. /2013 s Sana Irizarry M.D. 07/12 Azithromycin 09/10 Hx Tablets 250mg 6tabs 2 po 786.2 Dinah L. /2011 today. 1 Juan C - po daily M.DArvind 05/31 x Medrol 05/16 Hx Tablets 4mg 1tabs dose-pack 388.9 [place] A. as Wendy Valencia - instructe 07/17 d Nasonex 05/16 Hx Suspension 50mcg/Act 1unit 1 spray 388.9 [place] A. s each Wendy Valencia - nostril 07/17 q Fexofenadine HCL 05/16 Hx Tablets 180mg 30tab 1 po qd 388.9 Jackson A. s Wendy Valencia - 07/17 Augmentin 07/31 Hx Tablets 875-125mg 20tab 1 po bid 461.9 Mireille s with food Joanne, - x 10d MANAGER [employer] 05/16 Meclizine HCL 07/31 Hx Tablets 12.5mg 30tab 1 po 1 8h 461.9 Family s during Medicine - [facility] 07/17 and 2po [facility] [place] qhs Macrobid 09/10 Hx Capsules 100mg 10cap 1 po bid 599.89 Jolene MArvind /2008 s for 5 LaFace, - osito M.D. 11/30 Augmentin 03/24 Hx Tablets 500mg 20tab 1 po bid 873.71 Mireille s with food Joanne, - x 10 days MANAGER [employer] 05/28 Doxycycline 07/03 Hx Capsules 100mg 2caps 2 po x1 Janki Silvestre, - Afnp-C 07/04 Levaquin 03/05 Hx Tablets 500 10tab 1 qd x 10 466.0 s days Hiro, [employer]ING [employer] PERSON - 03/21 Proair Hfa 03/05 Hx Inhaler 2 puffs q 466.0 3-4 hrs Hiro, [employer] G[employer]ERSON - prn cough 06/23 Robitussin A-c 03/05 Hx Syrup 100mg;10m 8Oz 1-2 TSP 466.0 g/5ML PO Q hs Hiro, [employer]ING [employer] - prn Cough 03/21 Tessalon Perles 03/05 Hx 20uni 1 bid prn 466.0 ts cough Hiro, [employer]ING [employer] - 03/21 Augmentin 02/23 Hx Tablets 875mg 20tab 1 PO bid s Silvestre, - Afnp-C 03/05 Take With Food Cymbalta 12/10 Hx Capsules 60mg 1 PO qd 466.0 [facility] - Associates 03/21 [facility] [place] Biaxin 12/10 Hx Tablets 500mg 20tab 1 PO bid 466.0 s X10 Days Desiree, - Afnp-C 12/20 Robitussin ac 12/10 Hx 4Oz 1-2 TSP 466.0 PO Q4H Desiree, - prn Cough Afnp-C 12/18 Biaxin 07/15 Hx Tablets 500mg 20tab 1 PO bid s X 10 Days Silvestre, - Afnp-C 07/25 Zithromax 03/05 Hx Tablets 250mg 6tabs 2 Tabs Prosper T. /2004 Day 1 Dominik, - M.DArvind 07/17 1 Tab qd Days 2 Thru 5 Entex Pse 07/20 Hx 30uni 1 bid prn ts congestio Silvestre, - n Afnp-C 01/07 Out Of Work 07/20 Hx Will Be Kami Out Of Desiree, - Work Afnp-C 07/21 Tomorrow Due To Illness Zithromax 08/30 Hx 250mg 6unit 2 Tabs Isaias S. /2001 s Day 1 Wendy Segura - 07/20 1 Tab qd Days 2 Thru 5 Antivert 09/27 Hx 12.5mg 40uni 1-2 tid Prosper T. /2000 ts prn Sana Lehman M.D. 01/07 Tamiflu 10/15 Hx 75mg 10uni 1 Tablet Ministerio A. /2000 ts Twice A Darlow, - Day M.D. 10/20 Duratuss GP 10/15 Hx 20uni 1 PO Q 12 Isaias S. /2000 ts HR prn Wendy Segura - Head 10/25 Congesti n Zithromax 10/14 Hx 250mg 6unit 2 Tabs Prosper T. /1999 s Day 1 Sana Lehman.DArvind 10/21 1 Tab qd Days 2 Thru 5 Zithromax 10/10 Hx 250mg 6unit 2 Tabs Isaias S. /1998 s Day 1 Wendy Segura - 10/20 1 Tab qd Days 2 Thru 5 Nasonex Hx Suspension 50mcg/Act 1unit 2 Unknown /0000 s sprays/no - stril/day 05/16 One A Day Hx Tablets 1 po qd Unknown Vitamin /0000 - 06/02 Bactrim DS Hx Tablets 800-160mg 1 by Unknown /0000 mouth - twice a /2015 Keflex Hx Capsules 500mg 1 by Unknown /0000 mouth - four 06/02 times day Immunizations CPT Code Status Date Vaccine Lot # [id number] Given 07/26/2018 Influenza Vac, Quadriv[place], [place] [id number] Given 06/12/2017 Influenza Vac, Quadrivalent, Slit Virus, Im [id number] Given 06/20/2016 Influenza Vac, [place]riv[place] [id number] Given 06/01/2013 Tdap Tetanus, W Pertussis [id number] Given 09/10/2012 DO Not Use Split Influenza Virus Vaccine [id number] Given 07/17/2011 DO Not Use Split Influenza Virus Vaccine [id number] Vital Signs Date Vital Result Comment 12/16/2018 9:42am BP Systolic 128 mmHg BP Diastolic 78 mmHg Heart Rate 74 /min Body Temperature 97.0 F Respiratory Rate 17 /min Weight 161.00 lb 11/18/2018 2:10pm BP Systolic 116 mmHg BP Diastolic 70 mmHg Heart Rate 82 /min Body Temperature 97.3 F Respiratory Rate 20 /min Weight 157.00 lb 07/27/2018 10:25am BP Systolic 130 mmHg BP Diastolic 76 mmHg Heart Rate 72 /min Body Temperature 98.1 F Respiratory Rate 18 /min Height 62 inches 5'2" Weight 152.00 lb BMI (Body Mass Index) 27.8 kg/m2 05/20/2018 9:28am BP Systolic 142 mmHg BP Diastolic 82 mmHg Heart Rate 66 /min Body Temperature 97.5 F Weight 148.00 lb 03/08/2018 11:38am BP Systolic 110 mmHg BP Diastolic 70 mmHg Heart Rate 64 /min Body Temperature 99.3 F Respiratory Rate 16 /min Weight 147.00 lb 01/28/2018 10:12am BP Systolic 100 mmHg BP Diastolic 60 mmHg Heart Rate 68 /min Body Temperature 99.4 F Respiratory Rate 16 /min Weight 144.00 lb 10/15/2017 11:31am BP Systolic 128 mmHg BP Diastolic 82 mmHg Heart Rate 72 /min Body Temperature 97.9 F Weight 139.00 lb 06/12/2017 4:18pm BP Systolic 112 mmHg BP Diastolic 62 mmHg Heart Rate 60 /min Body Temperature 98.6 F Respiratory Rate 16 /min Weight 134.06 lb 10/06/2016 8:06pm BP Systolic 104 mmHg BP Diastolic 70 mmHg Heart Rate 60 /min Body Temperature 96.8 F Respiratory Rate 16 /min Height 63 inches 5'3" Weight 158.25 lb BMI (Body Mass Index) 28.0 kg/m2 06/03/2016 10:01am BP Systolic 114 mmHg BP Diastolic 72 mmHg Heart Rate 70 /min Body Temperature 98.2 F Height 63 inches 5'3" Weight 152.38 lb BMI (Body Mass Index) 27.0 kg/m2 01/31/2016 11:18am BP Systolic 120 mmHg BP Diastolic 70 mmHg Heart Rate 66 /min Body Temperature 98.2 F Height 63 inches 5'3" Weight 160.38 lb BMI (Body Mass Index) 28.4 kg/m2 06/29/2015 11:47am BP Systolic 140 mmHg BP Diastolic 84 mmHg Heart Rate 72 /min Body Temperature 97.8 F Respiratory Rate 16 /min Height 63 inches 5'3" measured Weight 152.00 lb BMI (Body Mass Index) 26.9 kg/m2 02/28/2015 9:01am BP Systolic 110 mmHg BP Diastolic 60 mmHg Heart Rate 88 /min Body Temperature 99.6 F Respiratory Rate 16 /min Height 63 inches 5'3" measured Weight 147.25 lb BMI (Body Mass Index) 26.1 kg/m2 02/06/2015 3:27pm BP Systolic 110 mmHg BP Diastolic 76 mmHg Heart Rate 90 /min Body Temperature 98.4 F Height 63 inches 5'3" measured Weight 157.25 lb BMI (Body Mass Index) 27.9 kg/m2 07/24/2014 9:55am BP Systolic 114 mmHg BP Diastolic 64 mmHg Heart Rate 72 /min Body Temperature 97.4 F Respiratory Rate 14 /min Height 63 inches 5'3" measured Weight 162.00 lb BMI (Body Mass Index) 28.7 kg/m2 07/13/2014 2:29pm BP Systolic 142 mmHg BP Diastolic 84 mmHg Heart Rate 84 /min Body Temperature 98.9 F Height 63 inches 5'3" measured Weight 162.50 lb BMI (Body Mass Index) 28.8 kg/m2 02/01/2014 2:12pm BP Systolic 122 mmHg BP Diastolic 80 mmHg Heart Rate 60 /min Body Temperature 98.4 F Respiratory Rate 18 /min Height 63 inches 5'3" measured Weight 160.00 lb BMI (Body Mass Index) 28.3 kg/m2 01/19/2014 3:21pm BP Systolic 130 mmHg BP Diastolic 70 mmHg Heart Rate 68 /min Body Temperature 97.3 F Respiratory Rate 18 /min Height 63 inches 5'3" measured Weight 158.00 lb BMI (Body Mass Index) 28.0 kg/m2 10/03/2013 5:59pm BP Systolic 110 mmHg BP Diastolic 70 mmHg Heart Rate 68 /min Body Temperature 98.3 F Respiratory Rate 18 /min Height 63 inches 5'3" measured Weight 160.00 lb BMI (Body Mass Index) 28.3 kg/m2 06/01/2013 9:38am BP Systolic 108 mmHg BP Diastolic 70 mmHg Heart Rate 60 /min Body Temperature 98.0 F Height 63 inches 5'3" measured Weight 151.12 lb BMI (Body Mass Index) 26.8 kg/m2 09/10/2012 4:19pm BP Systolic 120 mmHg BP Diastolic 80 mmHg Heart Rate 76 /min Body Temperature 98.3 F Height 63.25 inches 5'3.25" measured Weight 150.00 lb BMI (Body Mass Index) 26.4 kg/m2 07/17/2011 9:57am BP Systolic 116 mmHg BP Diastolic 60 mmHg Heart Rate 60 /min Body Temperature 98.1 F Height 63.25 inches 5'3.25" measured Weight 152.00 lb BMI (Body Mass Index) 26.7 kg/m2 05/16/2011 9:50am BP Systolic 100 mmHg BP Diastolic 68 mmHg Heart Rate 72 /min Body Temperature 98.4 F Height 63 inches 5'3" Weight 148.00 lb BMI (Body Mass Index) 26.2 kg/m2 07/31/2010 11:56am BP Systolic 110 mmHg BP Diastolic 66 mmHg Heart Rate 68 /min Body Temperature 98.2 F Respiratory Rate 24 /min Height 63 inches 5'3" Weight 156.00 lb BMI (Body Mass Index) 27.6 kg/m2 11/30/2009 9:06am BP Systolic 100 mmHg BP Diastolic 78 mmHg Heart Rate 63 /min Height 63 inches 5'3" Weight 148.00 lb BMI (Body Mass Index) 26.2 kg/m2 09/10/2009 12:06pm BP Systolic 114 mmHg BP Diastolic 70 mmHg Heart Rate 80 /min Body Temperature 9.4 F Height 62 inches 5'2" Weight 145.00 lb BMI (Body Mass Index) 26.5 kg/m2 05/28/2009 10:31am BP Systolic 114 mmHg BP Diastolic 72 mmHg Heart Rate 72 /min Body Temperature 97.8 F Height 62 inches 5'2" Weight 141.00 lb BMI (Body Mass Index) 25.8 kg/m2 03/24/2009 9:40am BP Systolic 94 mmHg BP Diastolic 64 mmHg Heart Rate 68 /min Body Temperature 98.2 F 07/03/2008 11:53am BP Systolic 100 mmHg BP Diastolic 70 mmHg Heart Rate 76 /min Body Temperature 98.8 F Height 62 inches 5'2" 06/23/2008 3:01pm BP Systolic 112 mmHg BP Diastolic 70 mmHg Heart Rate 60 /min Height 62 inches 5'2" Weight 170.00 lb BMI (Body Mass Index) 31.1 kg/m2 03/21/2008 10:45am BP Systolic 122 mmHg BP Diastolic 78 mmHg Heart Rate 80 /min Height 62 inches 5'2" Weight 174.00 lb BMI (Body Mass Index) 31.8 kg/m2 03/05/2007 10:28am BP Systolic 122 mmHg BP Diastolic 70 mmHg Heart Rate 80 /min Body Temperature 99.2 F Height 62 inches 5'2" Weight 154.00 lb BMI (Body Mass Index) 28.2 kg/m2 02/23/2007 2:42pm BP Systolic 112 mmHg BP Diastolic 74 mmHg Heart Rate 80 /min Body Temperature 98.6 F Height 62 inches 5'2" Weight 154.00 lb BMI (Body Mass Index) 28.2 kg/m2 12/10/2006 1:16pm BP Systolic 100 mmHg BP Diastolic 60 mmHg Body Temperature 98.3 F Height 62 inches 5'2" Weight 146.00 lb BMI (Body Mass Index) 26.7 kg/m2 01/07/2006 9:29am BP Systolic 112 mmHg BP Diastolic 62 mmHg Heart Rate 60 /min Respiratory Rate 16 /min Height 62 inches 5'2" Weight 139.00 lb BMI (Body Mass Index) 25.4 kg/m2 07/17/2005 3:36pm BP Systolic 100 mmHg BP Diastolic 60 mmHg Heart Rate 72 /min Body Temperature 98.0 F Height 62 inches 5'2" Weight 133.00 lb BMI (Body Mass Index) 24.3 kg/m2 07/15/2005 9:10am BP Systolic 98 mmHg BP Diastolic 60 mmHg Heart Rate 60 /min Body Temperature 98.8 F Height 62 inches 5'2" 03/05/2005 9:15am BP Systolic 94 mmHg BP Diastolic 60 mmHg Heart Rate 66 /min Body Temperature 98.2 F Height 62 inches 5'2" Weight 136.00 lb BMI (Body Mass Index) 24.9 kg/m2 05/01/2004 4:52pm BP Systolic 90 mmHg BP Diastolic 60 mmHg Heart Rate 72 /min Body Temperature 98.6 F Height 62 inches 5'2" Weight 130.00 lb BMI (Body Mass Index) 23.8 kg/m2 07/20/2003 1:55pm BP Systolic 102 mmHg BP Diastolic 70 mmHg Body Temperature 97.6 F Height 62 inches 5'2" Weight 125.00 lb BMI (Body Mass Index) 22.9 kg/m2 09/27/2001 1:09pm BP Systolic 112 mmHg BP Diastolic 70 mmHg Body Temperature 97.1 F Height 62 inches 5'2" Weight 136.50 lb BMI (Body Mass Index) 25.0 kg/m2 10/15/2000 9:59am BP Systolic 90 mmHg BP Diastolic 50 mmHg Body Temperature 97.6 F Weight 126.00 lb 10/14/1999 11:17am Body Temperature 98.3 F 10/10/1998 2:54pm Body Temperature 97.8 F Weight 134.00 lb 05/10/1998 4:26pm Body Temperature 97.0 F Weight 131.00 lb Results Test Date Facility Test Result H/L Range Note Ua - Micro (Fma) 11/18/2018 [facility] Appearance clear (607)- - Color yellow Glucose, Urine (Fma/CMC/CTX) negative Bilirubin ICTO NEGATIVE # Ketones trace # SP Grav >=1.030 # Blood trace-lysed # PH 5.5 Protein SSA 2+ # Urobil 2.0 # Nitrite Positive # Leukocytes (Fma/CMC/Centrex) negative Hyaline - /Lpf # Granular - /Lpf # WBC (Fma,Centrex) 1-2 # RBC 10-12 # Mucus (Fma/CBC/Centrex) 0 /Lpf # Epith occ /Lpf # Bacteria +2 /Hpf # Amorphous (Fma/CMC/Centrex) - /Lpf # Crystals, Fluid (Fma/CMC/CTX) - # Z#Comments - # Laboratory test finding 07/22/2018 [facility] [facility] Troponin I 0.00 ng/mL <0.04 CBC Auto Diff 07/22/2018 [facility] White Blood Count 5.1 10^3/uL N 3.5-10.8 Red Blood Count 4.16 10^6/uL N 4.00-5.40 Hemoglobin 14.2 g/dL N 12.0-16.0 Hematocrit 39 % N 35-47 Mean Corpuscular Volume 94 fL N 80-97 Mean Corpuscular Hemoglobin 34 pg High 27-31 Mean Corpuscular HGB Conc 36 g/dL N 31-36 Red Cell Distribution Width 13 % N 10.5-15 Platelet Count 226 10^3/uL N 150-450 Mean Platelet Volume 8.0 um3 N 7.4-10.4 Abs Neutrophils 3.8 10^3/uL N 1.5-7.7 Abs Lymphocytes 0.7 10^3/uL Low 1.0-4.8 Abs Monocytes 0.4 10^3/uL N 0-0.8 Abs Eosinophils 0.2 10^3/uL N 0-0.6 Abs Basophils 0 10^3/uL N 0-0.2 Abs Nucleated RBC 0 10^3/uL Granulocyte % 74.8 % N 38-83 Lymphocyte % 13.6 % Low 25-47 Monocyte % 7.3 % High 0-7 Eosinophil % 3.9 % N 0-6 Basophil % 0.4 % N 0-2 Nucleated Red Blood Cells % 0 Inr/Protime 07/22/2018 [facility] Inr 0.85 N 0.77-1.02 Laboratory test finding 07/22/2018 [facility] Partial Thrombo 31.1 seconds N 26.0-36.3 Time PTT D Dimer Quantitative < 200 ng/mL N Less Than 230 1 B-Type Natriuretic Peptide BNP 60 pg/mL 2 Lactic Acid 1.2 mmol/L N 0.5-2.0 3 Comp Metabolic Panel 07/22/2018 [facility] Sodium 140 mmol/L N 135-145 Potassium 3.9 mmol/L N 3.5-5.0 Chloride 109 mmol/L N 101-111 Co2 Carbon Dioxide 26 mmol/L N 22-32 Anion Gap 5 mmol/L N 2-11 Glucose 108 mg/dL High 70-100 Blood Urea Nitrogen 20 mg/dL N 6-24 Creatinine 0.86 mg/dL N 0.51-0.95 BUN/Creatinine Ratio 23.3 High 8-20 Calcium 9.3 mg/dL N 8.6-10.3 Total Protein 6.8 g/dL N 6.4-8.9 Albumin 4.1 g/dL N 3.2-5.2 Globulin 2.7 g/dL N 2-4 Albumin/Globulin Ratio 1.5 N 1-3 Total Bilirubin 0.70 mg/dL N 0.2-1.0 Alkaline Phosphatase 80 U/L N 34-104 Alt 18 U/L N 7-52 Ast 18 U/L N 13-39 Egfr Non- 67.8 >60 Egfr 82.0 >60 4 Laboratory test finding 07/22/2018 [facility] Magnesium 2.0 mg/dL N 1.9-2.7 Troponin I 0.00 ng/mL <0.04 CKMB 07/22/2018 [facility] CKMB ng/mL 1.6 ng/mL N 0.6-6.3 Laboratory test finding 07/22/2018 [facility] TSH (Thyroid Stim 1.20 mcIU/mL N 0.34-5.60 Horm) Free T4 (Free Thyroxine) 0.79 ng/dL N 0.61-1.12 CBC Auto Diff 06/23/2018 [facility] White Blood Count 3.8 10^3/uL N 3.5-10.8 Red Blood Count 4.01 10^6/uL N 4.00-5.40 Hemoglobin 13.2 g/dL N 12.0-16.0 Hematocrit 38 % N 35-47 Mean Corpuscular Volume 94 fL N 80-97 Mean Corpuscular Hemoglobin 33 pg High 27-31 Mean Corpuscular HGB Conc 35 g/dL N 31-36 Red Cell Distribution Width 13 % N 10.5-15 Platelet Count 239 10^3/uL N 150-450 Mean Platelet Volume 7.8 um3 N 7.4-10.4 Abs Neutrophils 2.2 10^3/uL N 1.5-7.7 Abs Lymphocytes 1.1 10^3/uL N 1.0-4.8 Abs Monocytes 0.4 10^3/uL N 0-0.8 Abs Eosinophils 0.2 10^3/uL N 0-0.6 Abs Basophils 0.1 10^3/uL N 0-0.2 Abs Nucleated RBC 0 10^3/uL Granulocyte % 56.3 % N 38-83 Lymphocyte % 28.9 % N 25-47 Monocyte % 9.2 % High 0-7 Eosinophil % 4.0 % N 0-6 Basophil % 1.6 % N 0-2 Nucleated Red Blood Cells % 0 Comp Metabolic Panel 06/23/2018 [facility] Sodium 140 mmol/L N 135-145 Potassium 3.7 mmol/L N 3.5-5.0 Chloride 106 mmol/L N 101-111 Co2 Carbon Dioxide 30 mmol/L N 22-32 Anion Gap 4 mmol/L N 2-11 Glucose 95 mg/dL N 70-100 Blood Urea Nitrogen 10 mg/dL N 6-24 Creatinine 0.77 mg/dL N 0.51-0.95 BUN/Creatinine Ratio 13.0 N 8-20 Calcium 9.6 mg/dL N 8.6-10.3 Total Protein 7.3 g/dL N 6.4-8.9 Albumin 4.6 g/dL N 3.2-5.2 Globulin 2.7 g/dL N 2-4 Albumin/Globulin Ratio 1.7 N 1-3 Total Bilirubin 0.90 mg/dL N 0.2-1.0 Alkaline Phosphatase 74 U/L N 34-104 Alt 22 U/L N 7-52 Ast 21 U/L N 13-39 Egfr Non- 77.0 >60 Egfr 93.2 >60 5 Laboratory test finding 06/23/2018 [facility] LDH 164 U/L N 140-271 Vitamin B12 364 pg/mL N 180-914 6 Hepatitis B Surface Ag Nonreactive Nonreactive Hepatitis B Forrest AB Titer 06/23/2018 [facility] Hepatitis B Surface AB Immune Immune Hep B Surf AB Level 506.42 mIU/mL >12 Laboratory test 06/23/2018 [facility] Hepatitis B Core AB Nonreactive Nonreactive finding Igm Hepatitis C Antibody Nonreactive Nonreactive CBC Electronic Fma 05/20/2018 [facility] ([facility]) WBC 3.1 x10^3/UL Low 4.0-10.0 7 RBC 4.23 x10^6/UL 3.93-6.00 HGB 13.7 g/dL 12.0-17.0 HCT 38 % 35-50 MCV 90.5 fL 80.0-95.0 MCH 32.2 pg 25.6-32.2 MCHC 35.8 g/dL 32.2-36.0 RDW-CV 11.5 % Low 11.6-14.4 PLT 214 x10^3/UL 163-400 MPV 9.6 fL 9.4-12.4 Marvin# 1.60 x10^3/UL 1.56-6.13 Lymph# 0.94 x10^3/UL Low 1.18-3.74 Ida# 0.29 x10^3/UL 0.24-0.82 Eos # 0.2 x10^3/UL 0.0-0.5 Baso # 0.02 x10^3/UL 0.01-0.08 Marvin% 52.5 % 34.0-70.0 Lymph % 30.8 % 20.0-52.0 Ida% 9.5 % 5.0-12.0 Eos% 6.2 % 0.7-7.0 Baso% 0.7 % 0.1-1.2 Comprehensive Metabolic 05/20/2018 [facility] ([facility]) Sodium 140 mEq/L 134-149 Prof Potassium 4.9 mEq/L 3.6-5.5 Chloride 106 mEq/L 94-112 Carbon Dioxide 29 mEq/L 21-32 Glucose 107 mg/dL High 70-105 BUN 21 mg/dL 6-26 Creatinine 0.8 mg/dL 0.6-1.4 BUN/Creat Ratio 26.3 CALC 8.0-36.0 Calcium 9.2 mg/dL 8.6-10.2 Total Protein 6.8 g/dL 6.4-8.3 Albumin 4.6 g/dL 3.8-5.5 Globulin 2.2 g/dL 2.0-4.8 A/G Ratio 2.1 CALC 0.6-2.3 Alk. Phosphatase 78 U/L 30-110 Alt (SGPT) 26 U/L 7-35 Ast (Sgot) 18 U/L 5-34 Total Bilirubin 0.6 mg/dL 0.2-1.3 GFR Non- >60 ml/min/1.73m^ >=60 GFR >60 ml/min/1.73m^ >=60 Laboratory test 05/20/2018 [facility] ([facility]) Free T3 2.37 pg/mL 2.00- 4.90 finding Free T4 0.91 ng/dL 0.75-1.54 TSH 2.67 mIU/L 0.50-6.00 Vitamin B-12 361 pg/mL 230-1050 Ehrlichiosis Panel 05/20/2018 [facility] E. chaffeensis Negative Neg:<1:64 8 144 [facility] [place] [address] (606)- - E. chaffeensis ([facility]) IgM Titer Negative Neg:<1:20 9 Hge IgG Titer Negative Neg:<1:64 10 Hge IgM Titer Negative Neg:<1:20 11 Iron And 05/20/2018 [facility] Iron Bind.Cap.(Tibc) 278 g/dL 250-450 Tibc [facility] [place] [address] (602)- - Uibc 188 g/dL 131-425 Iron 90 g/dL 27-159 Iron Saturation 32 % 15-55 Lyme, Western Blot, 05/20/2018 [facility] IgG P93 Ab. Absent Serum [facility] [place] [address] (607)- - IgG P66 Ab. Absent IgG P58 Ab. Absent IgG P45 Ab. Absent IgG P41 Ab. Absent IgG P39 Ab. Absent IgG P30 Ab. Absent IgG P28 Ab. Absent IgG P23 Ab. Absent IgG P18 Ab. Absent Lyme IgG WB Interp. Negative 12 IgM P41 Ab. Absent IgM P39 Ab. Absent IgM P23 Ab. Absent Lyme IgM WB Interp. Negative 13 Babesia Microti 05/20/2018 [facility] Babesia microti <1:10 Neg:<1:10 AB Panel [id number] [facility] [place] [address] (607)- - Babesia microti IgG <1:10 Neg:<1:10 14 Ict Hemoccult (Fma) 06/24/2017 [facility] Ict Hemoccult (1) 06/17/17 neg (607)- - Ict Hemoccult-(2) 06/16/17 neg Ict-Hemoccult (3) 06/15/17 neg Comprehensive Metabolic 06/12/2017 [facility] ([facility]) Sodium 138 mEq/L 134-149 Prof Potassium 3.8 mEq/L 3.6-5.5 Chloride 99 mEq/L 94-112 Carbon Dioxide 26 mEq/L 21-32 Glucose 97 mg/dL 70-105 BUN 9 mg/dL 6-26 Creatinine 0.7 mg/dL 0.6-1.4 BUN/Creat Ratio 12.9 CALC 8.0-36.0 Calcium 9.1 mg/dL 8.6-10.2 Total Protein 6.7 g/dL 6.4-8.3 Albumin 4.5 g/dL 3.8-5.5 Globulin 2.2 g/dL 2.0-4.8 A/G Ratio 2.0 CALC 0.6-2.3 Alk. Phosphatase 66 U/L 30-110 Alt (SGPT) 20 U/L 7-35 Ast (Sgot) 19 U/L 5-34 Total Bilirubin 1.0 mg/dL 0.2-1.3 GFR Non- >60 ml/min/1.73m^ >=60 GFR >60 ml/min/1.73m^ >=60 Lipid Profile 06/12/2017 [facility] ([facility]) Cholesterol 199 mg/dL 120- 200 Triglycerides 57 mg/dL 30-200 HDL Cholesterol 60 mg/dL 30-85 LDL (Calculated) 128 CALC 0-129 VLDL Cholesterol 11 mg/dL 0-50 HDL Risk Factor 3.3 CALC 0.0-4.4 Laboratory test finding 06/12/2017 [facility] (a) TSH 1.96 mIU/L 0.50-6.00 CBC Manual Diff-a 06/12/2017 [facility] WBC 3.4 Low 3.6-9.6 (607)- - RBC 3.97 3.90-5.70 Hemoglobin (Fma/CMC/CTX) 13.1 g/dL 12.1 - 17.2 Hematocrit (Fma/CMC/CTX) 37.0 % 36.1 - 50.3 Mean Corpuscular Vol 93 82.2-97.4 Mean Corpuscular Hemoglobin 33.0 27.6-33.3 Mean Corpuscular Hemo Concen 35.3 32.0-36.0 Platelets 263 10^3/ul 150-400 RDW 13.5 11.6-13.7 Mean Platelet Volume 6.8 5.5-11.0 Neutrophil 42 Band 9 Lymphocytes 41 Monocyte 4 Eosinophils 4 Z#Comment rbc/plt normal Urinalysis Profile 10/06/2016 [facility] [place] Urine Color Straw N Urine Appearance Clear N Urine Specific [place] 1.008 Low 1.010-1.030 Urine pH 6.0 N 5-9 Urine Urobilinogen Negative N Negative Urine Ketones Trace Abnormal Negative Urine Protein Negative N Negative Urine Leukocytes Negative N Negative Urine Blood 1+ Abnormal Negative Urine Nitrite Negative N Negative Urine Bilirubin Negative N Negative Urine Glucose Negative N Negative Urine White Blood Cell Trace(0-5/hpf) N Absent Urine Red Blood Cell Trace(0-2/hpf) N Absent Urine Bacteria Absent N Absent Urine Squamous Epithelial Cell Present Abnormal Absent Laboratory test finding 10/06/2016 [facility] Lactic Acid 0.5 mmol/L N 0.5-2.0 15 Comp Metabolic Panel 10/06/2016 [facility] Sodium 139 mmol/L N 133-145 Potassium 3.2 mmol/L Low 3.5-5.0 Chloride 109 mmol/L N 101-111 Co2 Carbon Dioxide 23 mmol/L N 22-32 Anion Gap 7 mmol/L N 2-11 Glucose 95 mg/dL N 70-100 Blood Urea Nitrogen 15 mg/dL N 6-24 Creatinine 0.81 mg/dL N 0.51-0.95 BUN/Creatinine Ratio 18.5 N 8-20 Calcium 9.0 mg/dL N 8.6-10.3 Total Protein 6.7 g/dL N 6.4-8.9 Albumin 3.9 g/dL N 3.2-5.2 Globulin 2.8 g/dL N 2-4 Albumin/Globulin Ratio 1.4 N 1-3 Total Bilirubin 1.30 mg/dL High 0.2-1.0 Alkaline Phosphatase 61 U/L N 34-104 Alt 20 U/L N 7-52 Ast 18 U/L N 13-39 Egfr Non- 73.1 N >60 Egfr 94.1 N >60 16 Laboratory test finding 10/06/2016 [facility] Magnesium 2.0 mg/dL N 1.9-2.7 Lipase 15 U/L N 11.0-82.0 C Reactive Protein 4.68 mg/L N < 5.00 17 Troponin I 0.00 ng/mL N <0.04 18 CBC Auto Diff 10/06/2016 [facility] White Blood Count 4.7 10^3/uL N 3.5-10.8 Red Blood Count 4.12 10^6/uL N 4.0-5.4 Hemoglobin 13.2 g/dL N 12.0-16.0 Hematocrit 38 % N 35-47 Mean Corpuscular Volume 92 fL N 80-97 Mean Corpuscular Hemoglobin 32 pg High 27-31 Mean Corpuscular HGB Conc 35 g/dL N 31-36 Red Cell Distribution Width 13 % N 10.5-15 Platelet Count 218 10^3/uL N 150-450 Mean Platelet Volume 9 um3 N 7.4-10.4 Abs Neutrophils 2.6 10^3/uL N 1.5-7.7 Abs Lymphocytes 1.5 10^3/uL N 1.0-4.8 Abs Monocytes 0.5 10^3/uL N 0-0.8 Abs Eosinophils 0.2 10^3/uL N 0-0.6 Abs Basophils 0 10^3/uL N 0-0.2 Abs Nucleated RBC 0 10^3/uL N Granulocyte % 53.9 % N 38-83 Lymphocyte % 31.3 % N 25-47 Monocyte % 10.3 % High 1-9 Eosinophil % 3.8 % N 0-6 Basophil % 0.7 % N 0-2 Nucleated Red Blood Cells % 0.1 N CBC No Diff 09/27/2016 [facility] White Blood Count 5.0 10^3/uL N 3.5-10.8 Red Blood Count 4.44 10^6/uL N 4.0-5.4 Hemoglobin 14.1 g/dL N 12.0-16.0 Hematocrit 41 % N 35-47 Mean Corpuscular Volume 92 fL N 80-97 Mean Corpuscular Hemoglobin 32 pg High 27-31 Mean Corpuscular HGB Conc 34 g/dL N 31-36 Red Cell Distribution Width 13 % N 10.5-15 Platelet Count 236 10^3/uL N 150-450 Mean Platelet Volume 8 um3 N 7.4-10.4 Inr/Protime 09/27/2016 [facility] Inr 0.91 N 0.89-1.11 Laboratory test finding 09/27/2016 [facility] Partial Thrombo 32.7 seconds N 26.0-36.3 Time PTT Basic Metabolic Panel 09/27/2016 [facility] Sodium 138 mmol/L N 133-145 Potassium 4.4 mmol/L N 3.5-5.0 Chloride 107 mmol/L N 101-111 Co2 Carbon Dioxide 29 mmol/L N 22-32 Anion Gap 2 mmol/L N 2-11 Glucose 94 mg/dL N 70-100 Blood Urea Nitrogen 12 mg/dL N 6-24 Creatinine 0.83 mg/dL N 0.51-0.95 BUN/Creatinine Ratio 14.5 N 8-20 Calcium 9.5 mg/dL N 8.6-10.3 Egfr Non- 71.1 N >60 Egfr 91.5 N >60 19 Laboratory test 06/04/2016 [facility] Stool Culture SEE RESULT 20, 21 finding BELOW Complete Blood 01/31/2016 [facility] ([facility]) WBC 4.1 x10^3/UL 3.6-9. Count 6 RBC 4.58 x10^6/UL 3.90-5.70 HGB 15.1 g/dL 12.1-17.2 HCT 44 % 36-50 MCV 96.0 fL 82.2-97.4 MCH 32.9 pg 27.6-33.3 MCHC 34.3 g/dL 33.0-35.5 RDW 13.9 % High 11.6-13.7 PLT 286 x10^3/UL 150-400 MPV 7.9 fL 7.4-10.4 Gran # 2.5 x10^3/UL 1.5-7.2 Lymph# 1.4 x10^3/UL 0.7-4.9 Ida# 0.2 x10^3/UL 0.1-0.9 Gran % 59.8 % 42.2-75.2 Lymph % 34.9 % 20.5-51.1 Ida% 5.3 % 1.7-9.3 Comprehensive Metabolic 01/31/2016 Emery Kidd ([facility]) Sodium 138 mEq/L 134-149 Prof Potassium 4.9 mEq/L 3.6-5.5 Chloride 100 mEq/L 94-112 Carbon Dioxide 27 mEq/L 21-32 Glucose 105 mg/dL 70-105 BUN 18 mg/dL 6-26 Creatinine 0.9 mg/dL 0.6-1.4 BUN/Creat Ratio 20.0 CALC 8.0-36.0 Calcium 10.2 mg/dL 8.6-10.2 Total Protein 7.6 g/dL 6.4-8.3 Albumin 4.6 g/dL 3.8-5.5 Globulin 3.0 g/dL 2.0-4.8 A/G Ratio 1.5 CALC 0.6-2.3 Alk. Phosphatase 81 U/L 30-110 Alt (SGPT) 36 U/L High 7-35 22 Ast (Sgot) 25 U/L 5-34 Total Bilirubin 1.4 mg/dL High 0.2-1.3 23 GFR Non- >60 ml/min/1.73m^ >=60 GFR >60 ml/min/1.73m^ >=60 Lipid Profile 01/31/2016 Emery Kidd ([facility]) Cholesterol 255 mg/dL High 120-200 Triglycerides 73 mg/dL 30-200 HDL Cholesterol 50 mg/dL 30-85 LDL (Calculated) 190 CALC High 0-129 VLDL Cholesterol 15 mg/dL 0-50 HDL Risk Factor 5.1 CALC High 0.0-4.4 Laboratory test finding 01/31/2016 Emery Kidd ([facility]) TSH 1.06 mIU/L 0.50-6.00 24 Free T4 0.90 ng/dL 0.75-1.54 Free T3 2.56 pg/mL 2.00-4.90 Ua - Non Micro ([facility]) 01/31/2016 [facility] Appearance CLEAR (607)- - Color YELLOW Glucose, Urine ([facility]ma/CMC/CTX) NEG Bilirubin NEG Ketones NEG SP Grav 1.025 Blood NEG PH 5.0 Protein NEG Urobil 0.2 Nitrite NEG Leukocytes ([facility]/CMC/[facility]) NEG Urine Culture 06/29/2015 [facility] Urine Culture, Final report 25, 26 Routine [address]47 [facility] [place] [address] (607)- - Result 1 See Comment: 27 Ua - Micro ([facility]) 06/29/2015 [facility] Appearance CLEAR (607)- - Color YELLOW Glucose, Urine ([facility]ma/CMC/CTX) NEG Bilirubin NEG Ketones NEG SP Grav <=1.005 Blood TRACE-LYSED # PH 6.0 Protein NEG Urobil 0.2 Nitrite NEG Leukocytes ([facility]/CMC/[facility]) MOD # Hyaline - /Lpf Granular - /Lpf WBC ([facility]) 15-20 # RBC 3-5 # Mucus ([facility]ma/CBC/[facility]) SM AMT /Lpf # Epith RARE /Lpf # Bacteria 1+ /Hpf # Amorphous ([facility]/CMC/[facility]) - /Lpf Crystals, Fluid ([facility]ma/CMC/CTX) - Z#Comments - Laboratory test 02/28/2015 [facility] Quickstrep POSITIVE # Negative finding (607)- - Laboratory test 02/06/2015 [facility] Sed Rate 18 mm finding (607)- - ([facility]/CMC/[facility]) CBC Electronic 02/06/2015 [facility] WBC 5.1 3.6-9.6 (Fma) (607)- - RBC 4.34 3.90-5.70 Hemoglobin ([facility]ma/CMC/CTX) 14.3 g/dL 12.1 - 17.2 Hematocrit ([facility]ma/CMC/CTX) 41.2 % 36.1 - 50.3 Platelets 285 10^3/ul 150-400 Lymph% 27.8 % 17.0-48.0 Mixed% 5.4 Neutrophils % 66.8 Mean Corpuscular Vol 95 82.2-97.4 Mean Corpuscular Hemoglobin 32.9 27.6-33.3 Mean Corpuscular Hemo Concen 34.6 32.0-36.0 RDW 12.7 11.6-13.7 Mean Platelet Volume 7.4 5.5-11.0 Lyme Total AB 02/06/2015 [facility] Lyme IgG/IgM <0.91 ISR 0.00-0.90 28 Test/Reflex [address] [place], [place] [id number] [phone] Comprehensive 07/24/2014 [facility] ([facility]) Sodium 139 mEq/L 134-149 Metabolic Prof Potassium 4.8 mEq/L 3.6-5.5 Chloride 104 mEq/L 94-112 Carbon Dioxide 27 mEq/L 21-32 Glucose 101 mg/dL 70-105 BUN 17 mg/dL 6-26 Creatinine 0.7 mg/dL 0.6-1.4 BUN/Creat Ratio 24.3 CALC 8.0-36.0 Calcium 9.6 mg/dL 8.6-10.2 Total Protein 6.7 g/dL 6.4-8.3 Albumin 4.4 g/dL 3.8-5.5 Globulin 2.3 g/dL 2.0-4.8 A/G Ratio 1.9 CALC 0.6-2.3 Alk. Phosphatase 59 U/L 30-110 Alt (SGPT) 23 U/L 7-35 Ast (Sgot) 19 U/L 5-34 Total Bilirubin 0.8 mg/dL 0.2-1.3 Lipid Profile 07/24/2014 [facility] ([facility]) Cholesterol 198 mg/dL 120- 200 Triglycerides 61 mg/dL 30-200 HDL Cholesterol 47 mg/dL 30-85 LDL (Calculated) 139 CALC High 0-129 VLDL Cholesterol 12 mg/dL 0-50 HDL Risk Factor 4.2 CALC 0.0-4.4 Ua - Micro ([facility]) 07/13/2014 [facility] Appearance CLEAR (607)- - Color YELLOW Glucose, Urine ([facility]ma/CMC/CTX) NEG Bilirubin NEG Ketones NEG SP Grav 1.010 Blood NEG PH 7.0 Protein NEG Urobil 0.2 Nitrite NEG Leukocytes ([facility]/CMC/[facility]) SMALL # Hyaline - /Lpf Granular - /Lpf WBC ([facility]) 0-1 # RBC - Mucus - /Lpf Epith RARE /Lpf # Bacteria TRACE /Hpf # Amorphous - /Lpf Crystals, Fluid ([facility]ma/CMC/CTX) - Z#Comments - Laboratory 07/13/2014 [facility] Urine Culture No significant 29 test finding [address] g <SEE NOTE> [place] [id number] [phone] Clotest 03/01/2014 [facility] Clotest (SEE NOTE) 30 Laboratory 01/20/2014 [facility] Stool Negative Negative 31 test finding Helicobacter pylori Ag Laboratory 01/17/2014 [facility] Troponin I 0.00 ng/mL <0.03 32 test finding CBC Auto Diff 01/17/2014 [facility] White Blood 5.1 10^3/uL 4.8-10.8 Count Red Blood Count 4.18 10^6/uL 4.0-5.4 Hemoglobin 13.5 g/dL 12.0-16.0 Hematocrit 38 % 35-47 Mean Corpuscular Volume 90 fL 80-97 Mean Corpuscular Hemoglobin 32 pg High 27-31 Mean Corpuscular HGB Conc 36 g/dL 31-36 Red Cell Distribution Width 13 % 10.5-15 Platelet Count 252 10^3/uL 150-450 Mean Platelet Volume 9 um3 7.4-10.4 Abs Neutrophils 2.4 10^3/uL 1.5-7.7 Abs Lymphocytes 2.0 10^3/uL 1.0-4.8 Abs Monocytes 0.4 10^3/uL 0-0.8 Abs Eosinophils 0.3 10^3/uL 0-0.6 Abs Basophils 0 10^3/uL 0-0.2 Abs Nucleated RBC 0 10^3/uL Granulocyte % 47.4 % 38-83 Lymphocyte % 39.3 % 25-47 Monocyte % 7.9 % 1-9 Eosinophil % 5.0 % 0-6 Basophil % 0.4 % 0-2 Nucleated Red Blood Cells % 0 Comp Metabolic Panel 01/17/2014 [facility] Sodium 137 mmol/L 133-145 Potassium 3.3 mmol/L Low 3.7-5.6 Chloride 104 mmol/L 101-111 Co2 Carbon Dioxide 25 mmol/L 22-32 Anion Gap 8 mmol/L 2-11 Glucose 105 mg/dL High 70-100 Blood Urea Nitrogen 11 mg/dL 6-24 Creatinine 0.85 mg/dL 0.51-0.95 BUN/Creatinine Ratio 12.9 8-20 Calcium 10.5 mg/dL High 8.6-10.3 Total Protein 6.9 g/dL 6.4-8.9 Albumin 4.6 g/dL 3.2-5.2 Globulin 2.3 g/dL 2-4 Albumin/Globulin Ratio 2.0 1-3 Total Bilirubin 0.90 mg/dL 0.2-1.0 Alkaline Phosphatase 85 U/L 34-104 Alt 23 U/L 7-52 Ast 19 U/L 13-39 Egfr Non- 70.0 >60 Egfr 90.0 >60 33 Laboratory test finding 01/17/2014 [facility] Troponin I 0.00 ng/mL <0.03 34 TSH (Thyroid Stimulating Horm) 0.98 IU/mL 0.34-5.60 Laboratory test finding 06/10/2013 Emery Kidd ([facility]) TSH 0.85 mIU/L 0.50-6.00 Comprehensive Metabolic 06/01/2013 Emery Kidd ([facility]) Albumin 4.6 g/dL 3.8-5.5 Prof Alk. Phos. 79 U/L 30-110 Alt (SGPT) 20 U/L 7-35 Ast (Sgot) 24 U/L 5-34 BUN 15 mg/dL 6-26 Calcium 10.2 mg/dL 8.6-10.2 Chloride 106 mEq/L 94-112 Creatinine 1.0 mg/dL 0.6-1.4 Carbon Dioxide 27 mEq/L 21-32 Glucose 96 mg/dL 70-105 Sodium 138 mEq/L 134-149 Total Bilirubin 1.2 mg/dL 0.2-1.3 Total Protein 6.8 g/dL 6.3-8.1 Potassium 4.7 mEq/L 3.6-5.5 Globulin 2.3 g/dL 2.0-4.8 A/G Ratio 2.0 Calc 0.6-2.3 BUN/Creat Ratio 14.4 Calc 8.0-36.0 Lipid Profile 06/01/2013 Emery Kidd (a) Cholesterol 192 mg/dL 120- 200 HDL 38 mg/dL 30-85 Triglycerides 91 mg/dL 30-200 HDL Risk Factor 5.0 CALC High 0.0-4.4 LDL (Calculated) 135 CALC High 0-129 VLDL (Calculated) 18 mg/dL 0-50 CBC Electronic (a) 06/01/2013 [facility] WBC 4.0 3.6-9.6 (607)- - RBC 4.18 3.90-5.70 Hemoglobin ([facility]ma/CMC/CTX) 13.5 g/dL 12.1 - 17.2 Hematocrit (Fma/CMC/CTX) 39.0 % 36.1 - 50.3 Platelets 241 10^3/ul 150-400 Lymph% 33.7 20.5-51.1 Mixed% 6.7 Neutrophils % 59.6 Mean Corpuscular Vol 93 82.2-97.4 Mean Corpuscular Hemoglobin 32.2 27.6-33.3 Mean Corpuscular Hemo Concen 34.5 32.0-36.0 RDW 10.9 Low 11.6-13.7 Mean Platelet Volume 6.9 6.5-11.0 Ua - Non Micro ([facility]) 06/01/2013 [facility] Appearance CLEAR (607)- - Color YELLOW Glucose, Urine (a/CMC/CTX) NEG Bilirubin NEG Ketones NEG SP Grav 1.025 Blood NEG PH 5.5 Protein NEG Urobil 0.2 Nitrite NEG Leukocytes (a/CMC/[facility]) NEG Ua - Micro ([facility]) 07/17/2011 [facility] Appearance hazy (607)- - Color yellow Glucose - Bilirubin - Ketones - SP Grav >1.030 Blood - PH 5.5 Protein - Urobil 0.2 Nitrite - Leukocytes (a/CMC/[facility]) trace # Hyaline - /Lpf Granular - /Lpf WBC ([facility]) 4-6 RBC - Mucus mod amt /Lpf Epith mod amt /Lpf Bacteria 2+ /Hpf # Amorphous - /Lpf Crystals, Fluid (a/CMC/CTX) - Lipid Profile 07/17/2011 [facility] ([facility]) Cholesterol 184 mg/dL 120- 200 HDL 49 mg/dL 30-85 Triglycerides 54 mg/dL 30-200 HDL Risk Factor 3.7 CALC 0.0-4.0 LDL (Calculated) 124 CALC 0-129 VLDL (Calculated) 11 mg/dL 0-50 Comprehensive Metabolic 07/17/2011 [facility] ([facility]) Albumin 4.5 g/dL 3.8-5.5 Prof Alk. Phos. 77 U/L 30-110 Alt (SGPT) 18 U/L 7-35 Ast (Sgot) 19 U/L 5-34 BUN 15 mg/dL 6-26 Calcium 9.8 mg/dL 8.6-10.2 Chloride 102 mEq/L 94-112 Creatinine 0.8 mg/dL 0.6-1.4 Carbon Dioxide 28 mEq/L 21-32 Glucose 102 mg/dL 70-105 Sodium 136 mEq/L 134-149 Total Bilirubin 1.3 mg/dL 0.2-1.3 Total Protein 7.0 g/dL 6.3-8.1 Potassium 4.6 mEq/L 3.6-5.5 Globulin 2.5 g/dL 2.0-4.8 A/G Ratio 1.8 Calc 0.6-2.2 BUN/Creat Ratio 17.5 Calc 8.0-36.0 Lipid Profile (Trig/Chol/HDL) 01/19/2010 [facility] Triglyceride 30 mg/dL Low 40 -200 35 Cholesterol 143 mg/dL Less Than 200 36 High Density Lipoprotein 35 mg/dL Low 40-60 37 Cholesterol/HDL Ratio 4.09 AVERAGE 1-4.44 Low Density Lipoprotein 102 mg/dL High Less Than 100 38 Laboratory test finding 01/19/2010 [facility] Troponin-I (TnI) 0 NG/ML 39 Thyroid Panel 01/19/2010 [facility] Free Thyroxine 0.79 NG/ML 0.61-1.24 40 Thyroxine 5.6 g/dL 5-12 TSH 1.91 MIU/ML 0.34-5.60 CBC With Electronic Diff 01/19/2010 [facility] White Blood Count 4.3 CUMM Low 4.8-10.8 Stat Red Cell Count 4.00 CUMM Low 4.2-5.4 Hemoglobin 13.2 g/dL 12.0-16.0 Hematocrit 38 % 35-47 Mean Corpuscular Volume 94 um3 79-97 Mean Corpuscular Hemoglob 33 pg High 27-31 Mean Corpuscular HGB Cone 35 g/dL 32-36 Redcell Distribution WDTH 12 % 10.5-15 Platelet Count 227 CUMM 150-450 Mean Platelet Volume 8.0 um3 7.4-10.4 Gran % 52.9 % 38-83 Lymph % 30.3 % 25-47 Mononuclear % 10.2 % High 1-9 Eosinophil % 5.9 % 0-6 Basophil % 0.7 % 0-2 Abs Lymphs 1.3 1.0-4.8 Abs Mononuclear 0.4 0-0.8 Absolute Neutrophil Count 2.2 1.5-7.7 Abs Eosinophils 0.3 0-0.6 Abs Basophils 0 0-0.2 Comp Stat 01/19/2010 [facility] Sodium 142 mmol/L 135-145 Potassium 3.6 mmol/L 3.5-5.0 Chloride 107 mmol/L 101-111 Co2 (Carbon Dioxide) 27.0 mmol/L 22-32 Anion Gap 8.0 mmol/L 2-11 41 Glucose 131 mg/dL High 70-100 42 BUN 12 mg/dL 6-24 Creatinine 0.82 mg/dL 0.50-1.40 One Over Creatinine 1.20 BUN/Creatinine Ratio 14.6 8-20 Calcium 9.2 mg/dL 8.1-9.9 43 Total Protein 7.1 GM/DL 6.2-8.1 Albumin 4.1 GM/DL 3.6-5.4 Globulin 3.0 GM/DL 2-4 Albumin/Globulin Ratio 1.4 1-3 Bilirubin Total 0.7 mg/dL 0.4-1.5 44 Alkaline Phosphatase 90 U/L 30-110 Alt (SGPT) 20 U/L 14-54 Ast (Sgot) 25 U/L 12-42 eGFR Non- 78.8 > 60 eGFR 95.3 > 60 45 Laboratory test finding 01/19/2010 [facility] Troponin-I (TnI) 0.03 NG/ML 46 Thyroxine Free 0.93 NG/ML 0.61-1.24 47 TSH 3.22 MIU/ML 0.34-5.60 Laboratory test 11/30/2009 Emery Kidd ([facility]) TSH 1.22 mIU/L 0.50- 6.00 finding Lipid Profile 11/30/2009 Emery Kidd (a) Cholesterol 174 mg/dL 120- 200 HDL 49 mg/dL 30-85 Triglycerides 83 mg/dL 30-200 HDL Risk Factor 3.5 CALC Low 4.2-7.0 LDL (Calculated) 108 CALC 0-129 VLDL (Calculated) 17 mg/dL 0-50 Comprehensive Metabolic 11/30/2009 Emery Kidd ([facility]) Albumin 4.5 g/dL 3.8-5.5 Prof Alk. Phos. 73 U/L 30-110 Alt (SGPT) 30 U/L 7-35 Ast (Sgot) 22 U/L 5-34 BUN 17 mg/dL 6-26 Calcium 9.5 mg/dL 8.6-10.2 Chloride 106 mEq/L 94-112 Creatinine 0.9 mg/dL 0.6-1.4 Carbon Dioxide 29 mEq/L 21-32 Glucose 89 mg/dL 70-105 Sodium 146 mEq/L 134-149 Total Bilirubin 1.2 mg/dL 0.2-1.3 Total Protein 6.7 g/dL 6.3-8.1 Potassium 5.9 mEq/L High 3.6-5.5 48 Globulin 2.2 g/dL 2.0-4.8 A/G Ratio 2.1 Calc 0.6-2.2 BUN/Creat Ratio 18.9 Calc 8.0-36.0 CBC ([facility]) 11/30/2009 [facility] WBC 4.4 3.6-9.6 (607)- - RBC 4.50 3.90-5.70 Hemoglobin (Fma/CMC/CTX) 14.4 g/dL 12.1 - 17.2 Hematocrit (a/CMC/CTX) 42.7 % 36.1 - 50.3 Mean Corpuscular Vol 94.9 82.2-97.4 Mean Corpuscular Hemaglobin 32.0 27.6-33.3 Mean Corpuscular Hemo Concen 33.7 33.0-36.0 Platelets 247 10^3/ul 150-400 Lymph% 26.1 20.5-51.1 Mixed% 14.3 Neutrophils % 59.6 RDW 13.0 11.6-13.7 Mean Platelet Volume 10.7 High 7.4-10.4 Ua - Micro ([facility]) 11/30/2009 [facility] Appearance clear (607)- - Color yellow Glucose neg Bilirubin neg Ketones neg SP Grav 1.025 Blood trace # PH 5.0 Protein neg Urobil 0.2 Nitrite neg Leukocytes (a/CMC/[facility]) small # Hyaline - /Lpf Granular - /Lpf WBC ([facility]) 12-15 # RBC 4-6 # Mucus - /Lpf Epith few /Lpf # Bacteria 1+ /Hpf # Amorphous - /Lpf Crystals, Fluid (a/CMC/CTX) - Z#Comments - Ua - Micro ([facility]) 09/10/2009 [facility] Appearance CLEAR (607)- - Color YELLOW Glucose NEG Bilirubin NEG Ketones NEG SP Grav 1.025 Blood TRACE # PH 5.0 Protein NEG Urobil 0.2 Nitrite NEG Leukocytes ([facility]) SMALL # Hyaline - /Lpf Granular - /Lpf WBC (a,[facility]) 10-12 # RBC 1-2 # Mucus - /Lpf Epith FEW /Lpf # Bacteria 1+ /Hpf # Amorphous - /Lpf Crystals, Fluid ([facility]ma/CMC/CTX) - Z#Comments - Laboratory test 09/10/2009 [facility] Urine Culture No growth. finding 28 [place] [id number] [phone] Ua - Non Micro 06/23/2008 [facility] Appearance CLEAR (a) (607)- - Color YELLOW Glucose NEG Bilirubin NEG Ketones NEG SP Grav 1.015 Blood NEG PH 5.5 Protein NEG Urobil 0.2 Nitrite NEG Leukocytes (a/CMC/[facility]) NEG Comprehensive Metabolic 03/21/2008 Emery Marti ([facility]) Albumin 4.1 g/dL 3.8-5.5 49 Prof Alk. Phos. 76 U/L 30-110 Alt (SGPT) 17 U/L 7-35 Ast (Sgot) 21 U/L 5-34 BUN 15 mg/dL 6-26 Calcium 9.2 mg/dL 8.6-10.2 Chloride 101 mEq/L 94-112 Creatinine 1.0 mg/dL 0.6-1.4 Carbon Dioxide 24 mEq/L 21-32 Glucose 87 mg/dL 70-105 Sodium 138 mEq/L 134-149 Total Bilirubin 1.1 mg/dL 0.2-1.3 Total Protein 6.9 g/dL 6.3-8.1 Potassium 3.7 mEq/L 3.6-5.5 Globulin 2.8 g/dL 2.0-4.8 A/G Ratio 1.4 Calc 0.6-2.2 BUN/Creat Ratio 14.7 Calc 8.0-36.0 Laboratory test 03/21/2008 [facility] Sed Rate 19MM finding (607)- - (Fma/[facility]) Laboratory test 03/21/2008 Emery Marti (a) TSH 1.40 mIU/L 0.50-6 finding .00 Complete Blood 03/21/2008 Emery Kidd (a) WBC 3.6 3.6-9. Count x10^3/u 6 Gran# 2.2 x10^3/u 1.5-7.2 Gran% 60.7 % 42.2-75.2 HCT 37 % 36-50 HGB 12.8 g/dL 12.1-17.2 Lymph# 1.1 x10^3/u 0.7-4.9 Lymph% 31.6 % 20.5-51.1 MCH 31.4 pg 27.6-33.3 MCV 89.9 fL 82.2-97.4 MCHC 34.9 g/dL 33.0-35.5 Mo# 0.3 x10^3/u 0.1-0.9 Mo% 7.7 % 1.7-9.3 MPV 8.5 fL 7.4-10.4 PLT 261 x10^3/u 150-400 RBC 4.09 x10^6/u 3.90-5.70 RDW 12.6 % 11.6-13.7 Lipid Profile 03/21/2008 [facility] (a) Cholesterol 178 mg/dL 120- 200 HDL 42 mg/dL 30-85 Triglycerides 79 mg/dL 30-200 HDL Risk Factor 4.2 CALC 4.2-7.0 LDL (Calculated) 119 CALC 0-129 VLDL (Calculated) 16 mg/dL 0-50 Laboratory test 01/07/2006 [facility] Thyroid <10.00 0.00-35.00 50 finding 28 [facility] Peroxidase AB IU/[place] [address] [phone] Anti Thyroglobulin AB <20.0 IU/mL 0.0-40.0 CRP (High Sensitivity) 0.51 mg/L 0.00-3.00 51 Laboratory test 01/07/2006 [facility] Bilirubin, Direct 0.3 mg/dL 0 -0.6 finding (607)- - Bilirubin, Indirect 1.41 ml/dl High 0.10-1.0 Free T3 (Fma,CX) 3.08 pg/mL 2.0-4.9 CBC Electronic ([facility]) 01/07/2006 [facility] WBC 5.2 3.6-9.6 (607)- - Lymphocytes 23.9 % 20.5 - 51.1 Monocytes 6.4 % 1.7-9.3 Granulocytes 69.7 % 42.2 - 75.2 Lymphocytes 1.2 10^3/uL 0.7 - 4.9 Monocytes 0.3 10^3/uL 0.1 - 0.9 Granulocytes 3.6 10^3/uL 1.5 - 7.2 RBC 4.37 3.90-5.70 Hemoglobin (Fma/CMC/CTX) 14.2 g/dL 12.1 - 17.2 Hematocrit (Fma/CMC/CTX) 40.8 % 36.1 - 50.3 Mean Corpuscular Vol 93.3 82.2-97.4 Mean Corpuscular Hemaglobin 32.4 27.6-33.3 Mean Corpuscular Hemo Concen 34.7 33.0-36.0 RDW 12.4 11.6-13.7 Platelets 256. 10^3/ul 150-400 Mean Platelet Volume 8.3 7.4-10.4 Comp Metabolic 01/07/2006 [facility] Glucose, Serum 86 mg/dL 70- 105 ([facility]) Female (607)- - (Fma/CMC/CTX) BUN (a/[facility]) 11 mg/dL 6-26 Creatinine, Serum 0.9 mg/dL 0.6-1.4 BUN/Creatinin Ratio 13.0 8.0-36 Sodium 141 134-149 Potassium 3.9 3.6-5.5 Chloride 99 mEq/L 94-112 Co2 28 21-32 Calcium (Fma/[facility]) 9.3 mg/dL 8.6-10.2 Total Protein 7.2 g/dL 6.3-8.1 Albumin (a/[facility]) 4.4 3.8-5.5 Globulin 2.8 2.0-4.8 A/G Ratio (A/G Ratio) 1.6 0.6-2.2 Alkaline Phosphatase (F/C/CTX) 60 U/L 30-110 Alt (SGPT) Female ([facility]) 17 7-35 Ast Sgot 15 U/L 5-34 Bilirubin, Total 1.7 mg/dL High 0.2-1.3 Lipid Profile 01/07/2006 [facility] Cholesterol 157 mg/dL 120-200 ([facility]) Female (607)- - (a/[facility]) Triglyceride 84 mg/dL 30-200 HDL-Chol 39 mg/dL 30-85 LDL, Calculated ([facility]) 101 CALC 0-129 LDL Direct (/[facility]) - mg/dL 0-130 VLDL 17 0-50 HDL Risk Factor ([facility]) 4.0 CALC Low 4.2-7.0 Laboratory test 01/07/2006 [facility] TSH ([facility]) 1.36 uIU/ ml 0.5-6.0 finding (607)- - Free T4 ([facility]) 1.21 ng/dL 0.75-1.54 Laboratory test 05/02/2004 [facility] Troponin-I/TnI 0 ng/mL 0-0.06 52 finding PT/Inr ([facility]) 05/02/2004 [facility] PT--Therapy 11.3 SEC 10.7-13.1 ([facility]) Inr 0.89 Laboratory test finding 05/02/2004 [facility] Aptt 27.0 SEC 21.6-31.2 D Dimer Quant ([facility]) 147 ng/ML <230 CBC Electronic ([facility]) 05/02/2004 [facility] WBC 4.6 CUMM Low 4.8-10.8 RBC 3.94 CUMM Low 4.2-5.4 Hemoglobin (a/[facility]/CTX) 13.1 g/dL 12.0-16.0 Hematocrit ([facility]/CTX) 37 % 35-47 Mean Corpuscular Vol 94 UM3 79-97 Mean Corpuscular Hemaglobin 33 pg High 27-31 Mean Corpuscular Hemo Concen 35 g/dL 32-36 RDW 12 10.5-15 Platelets 229 CUMM 150-450 Mean Platelet Volume 8.3 7.4-10.4 Granulocytes 59.1 % 38-83 Lymphocytes 29.7 % 20-45 Monocytes 6.4 % 1-9 Eosinophil 4.7 0-6 Basophil% 0.1 0-2 Abs Lymphs 1.4 1.0-4.8 Abs Mononuclear 0.3 0-0.8 Abs Grans 2.7 1.5-7.7 Abs Eosinophils 0.2 0-0.6 Abs Basophils 0 0-0.2 Basic Metabolic ([facility]) 05/02/2004 [facility] Sodium 138 mmol/L 135-145 Potassium 4.0 mmol/L 3.5-5.0 Chloride 106 mmol/L 101-111 Co2 28.0 mmol/L 22-32 Anion Gap 4.0 mmol/L 2-11 Glucose, Serum ([facility]) 94 mg/dL 70-105 BUN ([facility]) 8 mg/dL 6-24 Creatinine ([facility]) 0.9 mg/dL 0.5-1.4 BUN/Creatinin Ratio 8.9 8-20 Calcium ([facility]) 9.3 mg/dL 8.7-10.2 1 Please note: The following may produce a false positive D Dimer test: - Rheumatoid factor greater than 60 IU/ml - Plasma hemoglobin greater than 0.05 gm/dl - Bilirubin greater than 50 mg/dl - Lipids greater than 1000 mg/dl - FDP greater than 20 ug/ml 2 >100 to <200 pg/mL: likely compensated congestive heart failure (CHF) 200 to 400 pg/mL: likely moderate CHF >400 pg/mL: likely moderate to severe CHF [address] [facility] Severe Sepsis and Septic Shock Management Bundle Measure requires all lactic acids initially measuring >2.0 mmol/L be repeated. 4 Because ethnic data is not always readily available, this report includes an eGFR for both -Americans and non- Americans. The National Kidney Disease Education Program (NKDEP) does not endorse the use of the MDRD equation for patients that are not between the ages of 18 and 70, are , have extremes of body size, muscle mass, or nutritional status, or are non- or non-. According to the [employer] Kid[employer], irrespective of diagnosis, the stage of the disease is based on the level of kidney function: Stage Description GFR(mL/min/1.73 m(2)) 1 Kidney damage with normal or decreased GFR 90 2 Kidney damage with mild decrease in GFR 60-89 3 Moderate decrease in GFR 30-59 4 Severe decrease in GFR 15-29 5 Kidney failure <15 (or dialysis) 5 Because ethnic data is not always readily available, this report includes an eGFR for both -Americans and non- Americans. The National Kidney Disease Education Program (NKDEP) does not endorse the use of the MDRD equation for patients that are not between the ages of 18 and 70, are , have extremes of body size, muscle mass, or nutritional status, or are non- or non-. According to the National Kid[employer] Foundation, irrespective of diagnosis, the stage of the disease is based on the level of kidney function: Stage Description GFR(mL/min/1.73 m(2)) 1 Kidney damage with normal or decreased GFR 90 2 Kidney damage with mild decrease in GFR 60-89 3 Moderate decrease in GFR 30-59 4 Severe decrease in GFR 15-29 5 Kidney failure <15 (or dialysis) 6 Normal Range 180 to 914 Indeterminate Range 145 to 180 Deficient Range <145 7 RESULTS VERIFIED BY REPEAT ANALYSIS 8 1SST 9 IgG titers if 1:64 or greater indicate exposure or acute and convalescent samples showing a four-fold increase, and/or the presence of IgM indicate recent or current infection. 10 HGE IgG levels are detectable 7 to 10 days post infection and persist approximately one year. 11 Due to a reagent backorder, this test was performed using a different assay. The reference interval for this alternate assay is: Negative <1:64 Positive 1:64 or greater IgM levels usually rise 3 to 5 days post infection and fall to normal levels in approximately 30 to 60 days. 12 Positive: 5 of the following Borrelia-specific bands: 18,23,28,30,39,41,45,58, 66, and 93. Negative: No bands or banding patterns which do not meet positive criteria. 13 Note: An equivocal or positive EIA result followed by a negative Western Blot result is considered NEGATIVE. An equivocal or positive EIA result followed by a positive Western Blot is considered POSITIVE by the CDC. Positive: 2 of the following bands: 23,39 or 41 Negative: No bands or banding patterns which do not meet positive criteria. Criteria for positivity are those recommended by CDC/ASTPHLD. p23=Osp C, r95=thdrxlvsx Note: Sera from individuals with the following may cross react in the Lyme Western Blot assays: other spirochetal diseases (periodontal disease, leptospirosis, relapsing fever, yaws, and pinta); connective autoimmune (Rheumatoid Arthritis and Systemic Lupus Erythematosus and also individuals with Antinuclear Antibody); other infections (Hyannis Spotted Fever; Rosie-Mauricio Virus, and Cytomegalovirus). 14 This test was developed and its performance characteristics determined by [facility]. It has not been cleared or approved by the U.S. Food and Drug Administration. The FDA has determined that such clearance or approval is not necessary. This test is used for clinical purposes. It should not be regarded as investigational or research. 15 MTS Severe Sepsis and Septic Shock Management Bundle Measure requires all lactic acids initially measuring >2.0 mmol/L be repeated. 16 Because ethnic data is not always readily available, this report includes an eGFR for both -Americans and non- Americans. The National Kidney Disease Education Program (NKDEP) does not endorse the use of the MDRD equation for patients that are not between the ages of 18 and 70, are , have extremes of body size, muscle mass, or nutritional status, or are non- or non-. According to the National Kidney Foundation, irrespective of diagnosis, the stage of the disease is based on the level of kidney function: Stage Description GFR(mL/min/1.73 m(2)) 1 Kidney damage with normal or decreased GFR 90 2 Kidney damage with mild decrease in GFR 60-89 3 Moderate decrease in GFR 30-59 4 Severe decrease in GFR 15-29 5 Kidney failure <15 (or dialysis) 17 Acute inflammation: >10.00 18 99th percentile=0.04 ng/mL Troponin results at [facility] and [facility] are not interchangeable. 19 Because ethnic data is not always readily available, this report includes an eGFR for both -Americans and non- Americans. The National Kidney Disease Education Program (NKDEP) does not endorse the use of the MDRD equation for patients that are not between the ages of 18 and 70, are , have extremes of body size, muscle mass, or nutritional status, or are non- or non-. According to the National Kidney Foundation, irrespective of diagnosis, the stage of the disease is based on the level of kidney function: Stage Description GFR(mL/min/1.73 m(2)) 1 Kidney damage with normal or decreased GFR 90 2 Kidney damage with mild decrease in GFR 60-89 3 Moderate decrease in GFR 30-59 4 Severe decrease in GFR 15-29 5 Kidney failure <15 (or dialysis) 20 NO STERILE CUP 21 SEE RESULT BELOW Name: LUZ MARINA MARS : [address]: Rima Haile NP Acct: [id number] Unit: [id number] AGE: 56 Location: [facility] Re06/04/16 SEX: F Status: REG REF SPEC: [id number] FOREST: 06/04/[address]: Rima Haile NP REQ: [id number] RECD: 06/04/16-1211 STATUS: COMP _ SOURCE: STOOL SPDESC: ORDERED: Stool Culture, O P: Giar/Crypt COMMENTS: NO STERILE CUP Procedure Result Reported Site Stool Culture Final 06/06/16- 1139 ML Result No enteric pathogens isolated Testing for Salmonella, Shigella, Aeromonas, Plesiomonas, Yersinia and Campylobacter are included in a Stool Culture. Vibrio spp not routinely tested for in a stool culture. If testing is desired, please request specifically when placing test order. Sensitivities not routinely performed on stool isolates, as antibiotics may prolong the carriage rate of bacteria. Please contact the microbiology lab if sensitivities are required. Shiga Toxin 1 2 Final 06/05/16- 1102 ML Organism 1 Negative Shiga Toxin 1 2 Immunochromatographic Assay O P: Giardia/Cryptospor Screen Final 06/05/16- 1414 ML Organism 1 Neg Cryptosporidium/Giardia CONTINUED ON NEXT PAGE * ML=Testing performed at [facility] DEPARTMENT OF PATHOLOGY, [address] [place] [address] Modesto Patino M.D. Director [facility] # [id number] Patient: LUZ MARINA MARS [id number] (Continued) Specimen: [id number] Collected: 06/04/16 Received: 06/04/16 (Continued) Procedure Result Reported Site O P: Giardia/Cryptospor Screen Final (continued) 06/05/16- 1414 Giardia and cryptosporidium antigen testing performed by enzyme immunoassay. If patient is immunocompromised or has traveled to or is from a developing country, a full ova and parasite exam with microscopic (OPMIC) is recommended. All samples will be held one month in case full ova and parasite testing is requested. Contact the Microbiology Department at [phone]. TEST LIMITATIONS: As with all diagnostic procedures, the results obtained should be used in conjunction with other clinical information available the physician, including confirmation by another method. Negative results can occur in samples containing antigen below lower limits of detection of the assay. One negative specimen does not rule out the possibility of a parasitic infection. To improve detection it is recommended that three specimens be collected on separate days over a period of not more than seven days. The use of colonic washes, aspirates or other diluted sample types has not been established and could affect the performance of the assay. Stool samples contaminated with an oily or particulate base (eg. Barium, mineral oil etc.) could interfere with the test and are not recommended. * ML - MAIN LAB ([facility]) . END OF REPORT * ML=Testing performed at [facility] DEPARTMENT OF PATHOLOGY, [address] [place] [address] Modesto Patino M.D. Director [facility] # [id number] 22 RESULTS VERIFIED BY REPEAT ANALYSIS 23 RESULTS VERIFIED BY REPEAT ANALYSIS 24 FASTING 25 SRC:<Blank> 1URINE VACUTAI NER 26 Source of Specimen: <Blank> 1URINE VACUTAI 27 Source of Specimen: <Blank> 1URINE VACUTAI Culture shows less than 10,000 colony forming units of bacteria per milliliter of urine. This colony count is not generally considered to be clinically significant. 28 Negative <0.91 Equivocal 0.91 - 1.09 Positive >1.09 29 No significant growth. 30 RUN DATE: 03/02/14 [facility] LAB LIVE PAGE 1 RUN TIME: [address] [place] [address] Specimen Inquiry Name: LUZ MARINA MARS : [address]: Carlitos Biggs MD Acct: [id number] Unit: [id number] AGE: 53 Location: ENDO Re03/01/14 SEX: F Status: REG REF SPEC: [id number] FOREST: 03/01/14-[address]: Carlitos Biggs MD REQ: [id number] RECD: 03/01/14 STATUS: [facility] DR: Jj Sanders MD _ SOURCE: [facility]: ORDERED: Clotest Procedure Result Verified Site Clotest Final 03/02/14- 0759 ML Clotest Negative END OF REPORT * ML=Testing performed at Main Lab DEPARTMENT OF PATHOLOGY, [address] [place] [address] Modesto Patino M.D. Director [facility] # [id number] 31 Test Performed by: [address] [address] Helper/Driver: Carlo Ambriz III, M.D. 32 Reference Range and Interpretation: TnI (ng/mL) Interpretation Less Than 0.03 ng/mL Not supportive of diagnosis of AL 0.03 - 0.50 ng/mL Indeterminate: suggest serial studies if clinically indicated. Greater than 0.5 ng/mL Consistent with diagnosis of AL 33 Because ethnic data is not always readily available, this report includes an eGFR for both -Americans and non- Americans. The National Kidney Disease Education Program (NKDEP) does not endorse the use of the MDRD equation for patients that are not between the ages of 18 and 70, are , have extremes of body size, muscle mass, or nutritional status, or are non- or non-. According to the National Kidney Foundation, irrespective of diagnosis, the stage of the disease is based on the level of kidney function: Stage Description GFR(mL/min/1.73 m(2)) 1 Kidney damage with normal or decreased GFR 90 2 Kidney damage with mild decrease in GFR 60-89 3 Moderate decrease in GFR 30-59 4 Severe decrease in GFR 15-29 5 Kidney failure <15 (or dialysis) 34 Reference Range and Interpretation: TnI (ng/mL) Interpretation Less Than 0.03 ng/mL Not supportive of diagnosis of AL 0.03 - 0.50 ng/mL Indeterminate: suggest serial studies if clinically indicated. Greater than 0.5 ng/mL Consistent with diagnosis of AL 35 COMMENTS: N 36 CHOLESTEROL INTERPRETATION: Desirable: Less than 200 MG/DL Borderline-High Risk: 200-239 MG/DL High-Risk: 240 MG/DL and over 37 HDL INTERPRETATION: Undesirable: High Risk: Less than 40 MG/DL Desirable: Low Risk: Greater than 60 MG/DL 38 LDL INTERPRETATION: Low Risk Optimal Level: LDL Less than 100 MG/DL Near or Above Optimal: LDL 100-129 MG/DL Borderline High Risk: LDL 130-159 MG/DL High Risk: LDL 160-189 MG/DL Very High Risk: LDL Greater than 189 MG/DL 39 New Reference Range and Interpretation effective 07/01/2002 TnI (ng/ml) INTERPRETATION Less Than 0.06 ng/mL NOT SUPPORTIVE OF DIAGNOSIS OF AL 0.06 - 0.50 ng/ml INDETERMINATE: SUGGEST SERIAL STUDIES IF CLINICALLY INDICATED. Greater than 0.5 ng/mL CONSISTENT WITH DIAGNOSIS OF AL . 40 PLEASE NOTE NEW REFERENCE RANGES. 41 Anion gap measurement may be of limited value in the presence of any alkalosis, especially in a combined acid base disorder. . 42 Note change in reference range as of 05/18/08. The change was based on recommendations from the [place] [employer]. 43 Please note change in reference range effective 08 . 44 A metabolite of Naproxen, O-desmethylnaproxen, has been shown to interfere with the Jendrassik-Shoshana method for measuring total bilirubin. Samples from patients who have taken Naproxen have shown spurious elevation in total bilirubin levels. 45 Because ethnic data is not always readily available, this report includes an eGFR for both -Americans and non- Americans. The National Kidney Disease Education Program (NKDEP) does not endorse the use of the MDRD equation for patients that are not between the ages of 18 and 70, are , have extremes of body size, muscle mass, or nutritional status, or are non- or non-. According to the National Kidney Foundation, irrespective of diagnosis, the stage of the disease is based on the level of kidney function: Stage Description GFR(mL/min/1.73 m(2)) 1 Kidney damage with normal or decreased GFR 90 2 Kidney damage with mild decrease in GFR 60-89 3 Moderate decrease in GFR 30-59 4 Severe decrease in GFR 15-29 5 Kidney failure <15 (or dialysis) 46 New Reference Range and Interpretation effective 07/01/2002 TnI (ng/ml) INTERPRETATION Less Than 0.06 ng/mL NOT SUPPORTIVE OF DIAGNOSIS OF AL 0.06 - 0.50 ng/ml INDETERMINATE: SUGGEST SERIAL STUDIES IF CLINICALLY INDICATED. Greater than 0.5 ng/mL CONSISTENT WITH DIAGNOSIS OF AL . 47 PLEASE NOTE NEW REFERENCE RANGES. 48 result justina'd - no hemolysis 49 FASTING 50 FASTING; 1 SST TUBE 51 . hs-CRP Result (mg/L) Risk Level <1.0 Low 1.0-3.0 Average >3.0 High Patients with persistently unexplained, marked elevation of hs-CRP (greater than 10 mg/L) after repeated testing should be evaluated for non-cardiovascular etiologies. . 52 TnI INTERPRETATION <0.06 NG/ML NOT SUPPORTIVE OF DIAGNOSIS OF AL 0.06-0.5 NG/ML INDETERMINATE; SUGGEST SERIAL STUDIES IF CLINICALLY INDICATED. >0.5 NG/ML CONSISTENT WITH DIAGNOSIS OF AL Procedures Date Code Description Status 11/08/2018 [id number] Mammogram Completed 03/08/2018 94639 Remove Impacted Cerumen Completed 10/30/2017 [id number] Mammogram Completed 10/10/2014 [id number] Mammogram Completed 03/01/2014 [id number] Colonoscopy Completed 10/04/2013 [id number] Mammogram Completed 06/10/2013 15858 Dxa Bone Density Vertebarl FX Assessment Completed 06/10/2013 84448 Dxa Bone Density Study One Or More Sites Axial Completed Skeleton 05/29/2013 [id number] Bone Mineral Density Test Completed 08/06/2010 [id number] Mammogram Completed 08/10/2009 [id number] Mammogram Completed Encounters Type Date Location Provider Dx Diagnosis Office Visit 11/18/2018 [facility] Office Zenaida Greene N39.0 Urinary tract 2:00p HELEN Ruiz infection, site not specified Office Visit 07/27/2018 [facility] Office Diamond Pandey, K05.01 Acute gingivitis, 10:20a M.D. non-plaque induced B37.9 Candidiasis, unspecified Office Visit 05/20/2018 9:30a [facility] Mireille Rubio, R42 Dizziness and [employer]NA[employer] giddiness Office Visit 03/08/2018 11:40a [facility] Office Jj Montenegro T70.0xxA Otitic MD Mike barotrauma, initial encounter H61.21 Impacted cerumen, right ear Office Visit 01/28/2018 10:15a [facility] Mireille Rubio, B02.9 Zoster without Office [employer]NA[employer] complications Office Visit 10/15/2017 11:40a [facility] Office Diamond Pandey, R00.2 Palpitations M.D. Office Visit 06/12/2017 4:00p [facility] Rima R19.7 Diarrhea, Office Mic, MANAGER [employer]ATIONS unspecified K58.0 Irritable bowel syndrome with diarrhea Z12.39 Encounter for oth screening for malignant neoplasm of breast Z00.01 Encounter for general adult medical exam w abnormal findings Z23 Encounter for immunization D72.819 Decreased white blood cell count, unspecified Office Visit 10/06/2016 7:40p Main Office Dinah Love9.7 Diarrhea, Wendy Irizarry unspecified K58.0 Irritable bowel syndrome with diarrhea Office Visit 06/03/2016 10:00a [facility] Office Rima R19.7 Diarrhea, Mic, MANAGER [employer]ATIONS unspecified Office Visit 01/31/2016 11:00a [facility] Mireille Rubio, Z00.01 Encounter for MANAGER [employer]ATIONS general adult medical exam w abnormal findings S30.860A Insect bite (nonvenomous) of lower back and pelvis, init L03.012 Cellulitis of left finger W57.xxxA Bit/stung by nonvenom insect & oth nonvenom arthropods, init Office Visit 06/29/2015 11:40a [facility] Eugenekenneth Sánchez, R10.814 Left lower quadrant Office M.DArvind abdominal tenderness Office Visit 02/28/2015 9:00a [facility] Akmi 034.0 Streptococcal Sore Office Desiree, Throat Afnp-C Office Visit 02/06/2015 3:30p [facility] Janki 723.1 Cervicalgia Office Harpal Rivers 729.5 Pain In Limb Office Visit 07/24/2014 9:40a [facility] Diamond Pandey V70.0 Examination Wendy General Medical Routine AT Health Care Facility Office Visit 07/13/2014 2:30p [facility] Judy Huang, 599.0 UTI Urinary Tract [employer] Infection Site Not Spec Office Visit 02/01/2014 2:00p Main Office Jj Rizzo 789.06 Pain Abdominal Wendy Sanders Epigastric Office Visit 01/19/2014 2:40p [facility] Dinah Borden 530.81 Esophageal Reflux Wendy Irizarry Office Visit 10/03/2013 6:00p Main Office Mireille Rubio, 729.5 Pain In Limb [employer]NAGER [employer] Office Visit 06/01/2013 9:20a [facility] Manuel Bernardo V70.0 Examination Wendy Valencia General Medical Routine AT Health Care Facility V76.51 Screening For Malignant Neoplasms Colon V76.10 Screening For Malignant Neoplasm Breast V76.2 Screening Malignant Neoplasm Cervix V49.81 Postmenopausal Status Asymptomatic (Age-Related,Natural) V77.91 Screening For Lipoid Disorders V06.5 Tetanus Diphtheria (DT) Office Visit 09/10/2012 3:50p [facility] Dinah Borden 786.2 Cough Wendy Irizarry Office Visit 07/17/2011 10:00a Main Office Yamilet Wagner 781.1 Smell & Taste Floridalma, M.D. Sensation Disturbances V77.1 Screening Diabetes Mellitus V77.91 Screening For Lipoid Disorders V76.9 Screening Malignant Neoplasm Unspec 791.7 Cells & Casts In Urine Other V70.0 Examination General Medical Routine AT Health Care Facility V04.81 Need For Prophylactic Vaccination & Inoculation/Influenza Office Visit 05/16/2011 9:40a [facility] Manuel Bernardo 388.9 Ear Disorder Wendy Valencia Unspec 781.1 Smell & Taste Sensation Disturbances Office Visit 07/31/2010 11:30a [facility] Mireille Rubio, 461.9 Sinusitis Acute [employer]NAGER [employer] Unspec Office Visit 11/30/2009 9:00a [facility] Rima morin V70.0 Examination Wendy Wolfe General Medical Routine AT Health Care Facility V17.3 History Family Ischemic Heart Disease 627.9 Menopausal & Postmenopausal Disorder Unspec 791.7 Cells & Casts In Urine Other Office Visit 09/10/2009 11:40a [facility] Jolene Lyons 599.89 Urinary Tract Wendy Gilbert Other Spec Disorders Office Visit 05/28/2009 10:30a Main Office Janki 381.81 Eustachian Tube [place], Dysfunction Afnp-C Office Visit 03/24/2009 9:30a Main Office Mireille Rubio, 873.71 Open Wound Buccal [employer] Mucosa Complicated Office Visit 07/03/2008 11:30a Main Office Janki 911.4 Injury Superficial [place], Insect Bite Trunk Afnp-C Nonvenomous W/O Infect 465.9 URI Upper Respiratory Infections Acute Unspec Sites Office Visit 06/23/2008 3:00p [facility] Rima morin V70.0 Examination Wendy Wolfe General Medical Routine AT Health Care Facility Office Visit 03/21/2008 10:40a [facility] iRma morin 719.48 Pain Joint Other Wendy Wolfe Spec Sites V77.1 Screening Diabetes Mellitus V77.91 Screening For Lipoid Disorders 789.00 Pain Abdominal Unspec Site 783.1 Weight Gain Abnormal Office Visit 03/05/2007 10:20a [facility] Lorin Chapman 466.0 Bronchitis Acute Wood, [employer] Office Visit 02/23/2007 2:15p [facility] Janki 461.9 Sinusitis Acute [place], Unspec Afnp-C Office Visit 12/10/2006 1:15p Main Office Kami Ramírez, 466.0 Bronchitis Acute Afnp-C Office Visit 01/07/2006 9:20a [facility] Ministerio Bernardo 780.79 Malaise And Wendy Pisano Fatigue Other V18.0 History Family Diabetes Mellitus V16.3 History Family Malignant Neoplasm Breast V17.4 History Family Chronic Cardiovascular Diseases V18.1 History Family Endocrine & Metabolic Diseases 791.4 Biliuria V77.91 Screening For Lipoid Disorders Office Visit 07/17/2005 2:50p [facility] Prosper Montenegro 386.11 Vertigo Benign Wendy Lehman Paroxysmal Position 461.9 Sinusitis Acute Unspec Office Visit 07/15/2005 9:00a [facility] Janki 461.9 Sinusitis Acute [place], Afnp-C Unspec Office Visit 03/05/2005 9:10a Main Office Prosper Lehman, 784.0 Headache M.DArvind 461.9 Sinusitis Acute Unspec Office Visit 05/01/2004 4:10p [facility] Rima morin 729.5 Pain In Limb Wendy Wolfe Office Visit 07/20/2003 2:00p Main Office Kami Ramírez, 465.9 URI Upper Afnp-C Respiratory Infections Acute Unspec Sites Office Visit 09/27/2001 1:20p Main Office Frandy Ponce M.D. Office Visit 10/15/2000 10:00a Main Office Ministerio Pisano M.D. Plan of Treatment 12/16/2018 - Diamond Pandey M.D.N39.0 Urinary tract infection, site not specifiedNew Labs:Ua - Micro (Fma), Ordered: 12/16/18Urine Culture & Sensitivity, Ordered: 12/16/18Comments:call if symptoms don't improve, you develop fever >100.4, vomiting or symptoms worsen await urineculture before treatment, negative todayFollow up:cvziptybZ45.220 Encounter for screening for lipoid disordersNew Labs:Lipid Panel-[facility], Ordered: Comments:check fasting labM79.10 Myalgia, unspecified siteNew Medication: Cyclobenzaprine HCL 5 mg - 1/2-1 tablet every night at bedtime as neededNew Labs :CBC Electronic (a New), Ordered: 12/16/18CCS-Comp Metabolic ([facility]), Ordered: 12/16/18Magnesium ([facility]), Ordered: 12/16/18T4 & TSH, Ordered: CK Creatine Kinase W/RFX CKMB, Ordered: 12/16/18Lyme Abs Igg/Igm Eia RFX WB , Ordered: 12/16/18Comments:try muscle relaxant at bedtime, ibuprofen 600mg 3x a day as needed, Reviewed adverse side effects ofmedication. Advised to call the office if experiencing symptoms. Patient verbalized understanding.R10.32 Left lower quadrant painNew Xrays:Abdomen Complete 2 VW Min Decubitus &/Or Erect View, Ordered: 12/16/18Comments:The patient was instructed to call if symptoms of abdominal pain worsen.AllComments:Medication Management Patient Understands medications she's taking? Yes No Are there Barriers to Adherence? Yes No Has the patient been asked about herbal supplements and therapies, and OTC meds? Yes No
[2019-01-10 12:36] VITALS: BP 155/94
--- NOTE | 2019-01-10 12:41 | UC ---
Throat Pain/Nasal Jake HPI - HPI Summary HPI Summary: 58 yo female presents with left upper tooth pain. She tells me that about a month ago she had a fractured tooth in this area pulled. Since that time has been having some intermittent pain in this area. Over the last 2-3 days has been having constant pain in this area. She called her dentist, but they cannot see her for over a week. She is eating and drinking well. Denies fever or chills. - History of Current Complaint Chief Complaint: UCGeneralIllness Stated Complaint: TOOTH/SINUS Time Seen by Provider: 01/10/19 12:40 Hx Obtained From: Patient Hx Last Menstrual Period: MENOPAUSE Onset/Duration: Gradual Onset Severity: Moderate Pain Intensity: 5 Pain Scale Used: 0-10 Numeric - Allergies/Home Medications Allergies/Adverse Reactions: Allergies Allergy/AdvReac Type Severity Reaction Status Date / Time No Known Allergies Allergy Verified 01/10/19 12:36 PMH/Surg Hx/FS Hx/Imm Hx - Additional Past Medical History Additional PMH: None Other History Of: Negative For: HIV, Hepatitis B, Hepatitis C - Surgical History Surgical History: Yes Surgery Procedure, Year, and Place: L knee; tubal ligation +20years ago - Family History Known Family History: Positive: Cardiac Disease - father, Hypertension Negative: Diabetes Family History: Mother: Breast CA. Father: Heart disease. Sister: Lupus. Ulcer. - Social History Lives: With Family Alcohol Use: Occasionally Substance Use Type: None Smoking Status (MU): Never Smoked Tobacco Have You Smoked in the Last Year: No - Immunization History Most Recent Influenza Vaccination: 2016 Most Recent Tetanus Shot: utd Review of Systems All Other Systems Reviewed And Are Negative: Yes Constitutional: Positive: Negative Skin: Positive: Negative Eyes: Positive: Negative ENT: Positive: Dental Pain Respiratory: Positive: Negative Cardiovascular: Positive: Negative Gastrointestinal: Positive: Negative Neurovascular: Positive: Negative Neurological: Positive: Negative Psychological: Positive: Negative Physical Exam - Summary Physical Exam Summary: GENERAL: NAD. WDWN. No pain distress. SKIN: No rashes, sores, lesions, or open wounds. HEENT: Head: AT/NC Eyes: EOM intact. Conjunctiva clear without inflammation or discharge. Ears: Hearing grossly normal. TMs intact, no bulging, erythema, or edema. Nose: Nasal mucosa pink and moist. NTTP maxillary and frontal sinus. Throat: Posterior oropharynx without exudates, erythema, or tonsillar enlargement. Uvula midline. NECK: Supple. Nontender. No lymphadenopathy. CHEST: No accessory muscle use. Breathing comfortably and in no distress. CV: Pulses intact. Cap refill <2seconds NEURO: Alert. PSYCH: Age appropriate behavior. Triage Information Reviewed: Yes Vital Signs: Initial Vital Signs Temp 97.2 F 01/10/19 12:32 Pulse 68 01/10/19 12:32 Resp 18 01/10/19 12:32 BP 155/94 01/10/19 12:32 Pulse Ox 100 01/10/19 12:32 Vital Signs Reviewed: Yes Dental: Positive: Gross Decay/Caries @ - throughout, Dental Fracture @ - Tooth 15, Abscess @ - Tooth 15 Throat Pain/Nasal Course/Dx - Course Course Of Treatment: Tooth #15 abscess - Differential Dx/Diagnosis Provider Diagnosis: Dental abscess Discharge - Sign-Out/Discharge Documenting (check all that apply): Patient Departure All imaging exams completed and their final reports reviewed: No Studies - Discharge Plan Condition: Stable Disposition: HOME Prescriptions: Amoxicillin PO (*) [Amoxicillin 875 MG (*)] 875 mg PO BID #14 tab Patient Education Materials: Dental Abscess (ED) Referrals: Diamond Pandey MD [Primary Care Provider] - Additional Instructions: If you develop a fever, shortness of breath, chest pain, new or worsening symptoms - please call your PCP or go to the ED. Your blood pressure was high at todays visit. Please see your primary provider within 4 weeks for recheck and re-evaluation. - Billing Disposition and Condition Condition: STABLE Disposition: Home - Attestation Statements Provider Attestation: Per institutional requirements, I have reviewed the chart, however, I was not consulted specifically or made aware of this patient by the midlevel provider. I did not personally evaluate, interact with , or disposition this patient.
== END 2019-01-10 12:53 | disposition home or self-care (01) ==
LOC: UCEAST 12:15
DX: K04.7 Periapical abscess without sinus (principal); K03.81 Cracked tooth; K02.9 Dental caries, unspecified
CPT/HCPCS: 99212; G0463

== ENCOUNTER 2019-03-01 10:45 | Emergency (ER) | payer BC ==
[2019-03-01 12:24] VITALS: BP 169/91
--- NOTE | 2019-03-01 12:51 | UC ---
Skin Complaint HPI - HPI Summary HPI Summary: 58-year-old female presents with complaints of tick bite. States yesterday she discovered engorged tick to the top of her scalp which she believes has been there at least 2 days. She removed the tick immediately upon discovery. Denies fever, chills, flulike illness, fatigue, myalgias, joint pain or swelling. - History of Current Complaint Chief Complaint: UCSkin Time Seen by Provider: 03/01/19 12:26 Stated Complaint: TICK BITE Hx Obtained From: Patient Hx Last Menstrual Period: MENOPAUSE Pain Intensity: 0 - Allergy/Home Medications Allergies/Adverse Reactions: Allergies Allergy/AdvReac Type Severity Reaction Status Date / Time No Known Allergies Allergy Verified 01/10/19 12:36 Home Medications: Home Medications Multivitamins/Minerals TAB* [Theragran/minerals TAB*] 1 tab PO DAILY 03/01/19 [ History Confirmed 03/01/19] Psyllium Husk [Sm Fiber] 400 mg PO DAILY 03/01/19 [History Confirmed 03/01/19] Vitamin B Complex CAP* [B Complex CAP*] 1 cap PO DAILY 03/01/19 [History Confirmed 03/01/19] PMH/Surg Hx/FS Hx/Imm Hx Previously Healthy: Yes - Denies significant PMH Other History Of: Negative For: HIV, Hepatitis B, Hepatitis C - Surgical History Surgical History: Yes Surgery Procedure, Year, and Place: L knee; tubal ligation +20years ago - Family History Known Family History: Positive: None, Cardiac Disease - father, Hypertension Negative: Diabetes Family History: Mother: Breast CA. Father: Heart disease. Sister: Lupus. Ulcer. - Social History Occupation: Employed Full-time Lives: Alone Alcohol Use: Occasionally Substance Use Type: None Smoking Status (MU): Never Smoked Tobacco Have You Smoked in the Last Year: No - Immunization History Most Recent Influenza Vaccination: 2016 Most Recent Tetanus Shot: utd Review of Systems All Other Systems Reviewed And Are Negative: Yes Constitutional: Negative: Fever, Chills Skin: Positive: Other - See HPI. Negative: Rash Respiratory: Positive: Negative Cardiovascular: Positive: Negative, Palpitations Genitourinary: Positive: Negative Musculoskeletal: Negative: Arthralgia, Myalgia Neurological: Positive: Negative Is Patient Immunocompromised?: No Physical Exam - Summary Physical Exam Summary: GENERAL APPEARANCE: Well developed, well nourished, alert and cooperative, and appears to be in no acute distress. HEAD: Atraumatic. Normocephalic. Small area of erythema <1 cm in diameter noted to top of scalp. CARDIAC: Normal S1 and S2. No S3, S4 or murmurs. Rhythm is regular. There is no peripheral edema, cyanosis or pallor. Extremities are warm and well perfused. Capillary refill is less than 2 seconds. Peripheral pulses intact. LUNGS: Clear to auscultation without rales, rhonchi, wheezing or diminished breath sounds. ABDOMEN: Positive bowel sounds. Soft, nondistended, nontender. No guarding or rebound. No masses or hepatosplenomegally. MUSKULOSKELETAL: ROM intact to all extremities. No joint erythema or tenderness. Normal muscular development. Normal gait. SKIN: Skin normal color, texture and turgor with no lesions or eruptions. Triage Information Reviewed: Yes Vital Signs: Initial Vital Signs Temp 98.3 F 03/01/19 12:19 Pulse 84 03/01/19 12:19 Resp 16 03/01/19 12:19 BP 169/91 03/01/19 12:19 Pulse Ox 98 03/01/19 12:19 Vital Signs Reviewed: Yes Course/Dx - Course Course Of Treatment: 58-year-old female presents with complaints of tick bite. States yesterday she discovered engorged tick to the top of her scalp which she believes has been there at least 2 days. She removed the tick immediately upon discovery. Denies fever, chills, flulike illness, fatigue, myalgias, joint pain or swelling. Afebrile. Hypertensive otherwise vital signs stable. Patient had small area of circular erythema less than 1 cm in diameter to the top of her scalp. Otherwise unremarkable exam. Based on her history I am recommending prophylactic treatment for Lyme disease with doxycycline 200 mg by mouth once. Patient is agreeable to this. She is to follow-up with her primary care provider for recheck of her blood pressure. Symptoms of Lyme disease, anticipatory guidance, and warning symptoms were reviewed with the patient. Verbalizes understanding and agrees with plan of care. - Differential Diagnoses - Skin Complaint Differential Diagnoses: Local Allergic Reaction, Tick Born Illness - Diagnoses Provider Diagnosis: Tick bite of scalp Discharge - Sign-Out/Discharge Documenting (check all that apply): Patient Departure All imaging exams completed and their final reports reviewed: No Studies - Discharge Plan Condition: Stable Disposition: HOME Prescriptions: Doxycycline Hyclate 100 mg PO ONCE #2 tablet Patient Education Materials: Tick Bite (ED) Referrals: Diamond Pandey MD [Primary Care Provider] - Additional Instructions: Ticks transmit infection only after they have attached and then taken a blood meal from their new host. A tick that has not attached cannot not pass any infection. Since the deer tick that transmits Lyme disease typically feeds for more than 36 hours before transmitting the organisim that causes Lyme disease, the risk of acquiring Lyme disease from an tick bite is only 1.2 to 1.4 percent , even in an area where the disease is common. There is no benefit of blood testing for Lyme disease at the time of the tick bite because even people who become infected will not have a positive blood test until approximately two to six weeks after the tick bite. Since there is a concern that the tick was attached for more than 24 hours we will give you a dose of antibiotics to help prevent Lyme disease. Take doxycycline 2 tablets once today. To try to avoid getting bitten by a tick, you can: * Wear shoes, long-sleeved shirts, and long pants when you go outside. Keep ticks away from your skin by tucking your pants into your socks. * Wear light colors so you can spot any ticks that get on your clothes. * Wear bug spray or cream that contains DEET. (Do not use DEET on babies younger than 2 months.) On your clothes and gear, you can use bug repellents that have a chemical called "permethrin." * Shower within 2 hours of being outdoors if you think you have been in an area where there are ticks. * Put dry clothes briefly (for about 4 minutes) in a dryer after being outdoors. * Check your clothes and body for ticks after being outdoors. Be sure to check your scalp, waist, armpits, groin, and backs of your knees. Check your children , too. After a tick bite, you will need to monitor for signs of Lyme disease over the nexter several weeks even if you have been given antibiotics to prevent the infection. Seek immediate medical attention if you develop a bullseye rash, fever, flu-like symptoms including headache, stiff neck, fatigue, muscle aches, joint pain or swelling. Your blood pressure was elevated in the clinic today. It is recommended that you follow up with your primary care provider within 2 weeks to have this rechecked. - Billing Disposition and Condition Condition: STABLE Disposition: Home
== END 2019-03-01 13:09 | disposition home or self-care (01) ==
LOC: UCEAST 10:45
DX: S00.06XA Insect bite (nonvenomous) of scalp, initial encounter (principal); W57.XXXA Bitten or stung by nonvenomous insect and other nonvenomous arthropods, initial encounter; Y92.9 Unspecified place or not applicable
CPT/HCPCS: 99212; G0463

== ENCOUNTER 2019-03-07 08:15 | Observation (INO) | payer BC ==
[2019-03-07 09:00] LABS: ABS Eosinophils 0.2 10^3/ul (0-0.6); ABS Lymphocytes 1.2 10^3/ul (1.0-4.8); ABS Monocytes 0.4 10^3/ul (0-0.8); ABS Neutrophils 1.4 10^3/ul (1.5-7.7); Eosinophil % 5.2 %; Hematocrit 40 % (35-47); Hemoglobin 13.9 g/dL (12.0-16.0); Lymphocyte % 38.4 %; Mean Corpuscular HGB Conc 35 g/dL (31-36); Mean Corpuscular Hemoglobin 32 pg (27-31); Mean Corpuscular Volume 91 fL (80-97); Mean Platelet Volume 7.8 fL (7.4-10.4); Platelet Count 271 10^3/uL (150-450); Red Blood Count 4.38 10^6 /uL (3.70-4.87); Red Cell Distribution Width 13 % (10-15); White Blood Count 3.2 10^3/uL (3.5-10.8)
--- NOTE | 2019-03-07 09:15 | ED ---
Upper Extremity Pain - HPI Summary HPI Summary: The patient is a 58 y/o F presenting to [facility] with a chief complaint of LUE myalgia from the shoulder to the elbow, chest heaviness, and left-sided headache starting yesterday with worsening this morning when she woke up at 0700 as the pain went from being intermittent to constant. She states that she' s been having blood pressure issues for the last three weeks where her BP has been higher than usual. She saw Dr. Pandey two days ago but hasn't been put on medications for HTN. The chest heaviness is currently rated 6/10 in severity, but she states it isn't painful. There are no aggravating or alleviating factors. She denies fever, chills, erythema of eyes, sore throat, CP, SOB, cough , abdominal pain, N/V, dysuria, hematuria, edema, rash, and dizziness. Hx of HLD , diverticulitis. FHx of cardiac disease and HTN in father ( at age 74) . Recently had stress test. No recent medication changes or trauma to arm. Had a tick on her scalp in the beginning of February which she was placed on a course of doxycycline for. - History of Current Complaint Chief Complaint: EDExtremityUpper Stated Complaint: ARM PAIN, HEART RACING , HIGH BLOOD PRESSURE Time Seen by Provider: 03/07/19 08:26 Hx Obtained From: Patient Hx Last Menstrual Period: MENOPAUSE Mechanism Of Injury: Unknown Onset/Duration: Started Hours Ago, Still Present Timing: Constant, Lasting Hours Severity Initially: Mild Severity Currently: Moderate Pain Location: Arm - left upper arm Character: Aching Aggravating Factor(s): Nothing Alleviating Factor(s): Nothing Associated Signs & Symptoms: Positive: Other - POSITIVE: chest heaviness, left- sided headache; NEGATIVE: chills, erythema of eyes, sore throat, cough, abdominal pain, dysuria, hematuria, edema, rash, and dizziness. Negative: Fever , Chest Pain, SOB, Nausea, Vomiting - Allergies/Home Medications Allergies/Adverse Reactions: Allergies Allergy/AdvReac Type Severity Reaction Status Date / Time No Known Allergies Allergy Verified 03/07/19 08:20 PMH/Surg Hx/FS Hx/Imm Hx Endocrine/Hematology History: Denies: Hx Diabetes, Hx Thyroid Disease Cardiovascular History: Reports: Hx Angina - tightness flushed feeling Denies: Hx Congestive Heart Failure, Hx Deep Vein Thrombosis, Hx Hypertension , Hx Myocardial Infarction, Hx Pacemaker/ICD Respiratory History: Denies: Hx Asthma, Hx Chronic Obstructive Pulmonary Disease (COPD), Hx Lung Cancer, Hx Pneumonia, Hx Pulmonary Embolism GI History: Reports: Other GI Disorders - diverticulitis Denies: Hx Gall Bladder Disease, Hx Gastrointestinal Bleed, Hx Ulcer, Hx Urosepsis History: Denies: Hx Kidney Stones, Hx Renal Disease Sensory History: Denies: Hx Contacts or Glasses, Hx Hearing Aid Opthamlomology History: Denies: Hx Contacts or Glasses Neurological History: Denies: Hx Dementia, Hx Migraine, Hx Seizures, Hx Transient Ischemic Attacks (TIA) Psychiatric History: Denies: Hx Anxiety, Hx Depression, Hx Schizophrenia, Hx Bipolar Disorder - Cancer History Hx Chemotherapy: No Hx Radiation Therapy: No - Surgical History Surgery Procedure, Year, and Place: L knee; tubal ligation +20years ago Infectious Disease History: No Infectious Disease History: Reports: Hx Shingles Denies: Hx Hepatitis, Hx Human Immunodeficiency Virus (HIV), History Other Infectious Disease, Traveled Outside the [place] in Last 30 Days - Family History Known Family History: Positive: Cardiac Disease - father, Hypertension Negative: Diabetes Family History: Mother: Breast CA. Father: Heart disease. Sister: Lupus. Ulcer. - Social History Alcohol Use: Occasionally Hx Substance Use: No Substance Use Type: Reports: None Hx Tobacco Use: No Smoking Status (MU): Never Smoked Tobacco Do You Chew or Dip Tobacco: No Have You Chewed or Dipped Tobacco in the LAST YEAR: No Have You Smoked in the Last Year: No Review of Systems Negative: Fever, Chills Negative: Erythema Negative: Sore Throat Positive: Other - chest heaviness (not painful). Negative: Chest Pain Negative: Shortness Of Breath, Cough Negative: Abdominal Pain, Vomiting, Nausea Negative: dysuria, hematuria Positive: Myalgia - pain in upper left arm. Negative: Edema Negative: Rash Neurological: Other - NEGATIVE: dizziness Positive: Headache - left parietal All Other Systems Reviewed And Are Negative: Yes Physical Exam - Summary Physical Exam Summary: Constitutional: Well-developed, Well-nourished, Alert. (-) Distressed. Skin: Warm, Dry HENT: Normocephalic; Atraumatic Eyes: Conjunctiva normal Neck: Musculoskeletal ROM normal neck. (-) JVD, (-) Stridor, (-) Tracheal deviation Cardio: Rhythm regular, rate normal, Heart sounds normal; Intact distal pulses; The pedal pulses are 2+ and symmetric. Radial pulses are 2+ and symmetric. (-) Murmur Pulmonary/Chest wall: Effort normal. (-) Respiratory distress, (-) Wheezes, (-) Rales, No reproducible chest pain Abd: Soft, (-) tenderness, (-) Distension, (-) Guarding, (-) Rebound Musculoskeletal: (-) Edema Lymph: (-) Cervical adenopathy Neuro: Alert, Oriented x3 Psych: Mood and affect Normal Triage Information Reviewed: Yes Vital Signs On Initial Exam: Initial Vitals Temp Pulse Resp BP Pulse Ox 96.6 F 79 16 143/88 99 03/07/19 08:16 03/07/19 08:16 03/07/19 08:16 03/07/19 08:16 03/07/19 08:16 Vital Signs Reviewed: Yes Diagnostics - Vital Signs Vital Signs Temp Pulse Resp BP Pulse Ox 03/07/19 08:16 96.6 F 79 16 143/88 99 - Laboratory Lab Results: Lab Results 03/07/19 Range/Units 08:43 WBC 3.2 L (3.5-10.8) 10^3/uL RBC 4.38 (3.70-4.87) 10^6 /uL Hgb 13.9 (12.0-16.0) g/dL Hct 40 (35-47) % MCV 91 (80-97) fL MCH 32 H (27-31) pg MCHC 35 (31-36) g/dL RDW 13 (10-15) % Plt Count 271 (150-450) 10^3/uL MPV 7.8 (7.4-10.4) fL Neut % (Auto) 43.4 % Lymph % (Auto) 38.4 % [place] % (Auto) 12.4 % Eos % (Auto) 5.2 % Baso % (Auto) 0.6 % Absolute Neuts (auto) 1.4 L (1.5-7.7) 10^3/ul Absolute Lymphs (auto) 1.2 (1.0-4.8) 10^3/ul Absolute Monos (auto) 0.4 (0-0.8) 10^3/ul Absolute Eos (auto) 0.2 (0-0.6) 10^3/ul Absolute Basos (auto) 0.0 (0-0.2) 10^3/ul Absolute Nucleated RBC 0.0 10^3/ul Nucleated RBC % 0.0 Result Diagrams: 03/07/19 08:43 03/07/19 08:43 Lab Statement: Any lab studies that have been ordered have been reviewed, and results considered in the medical decision making process. - EKG 0835 Cardiac Rate: NL - 74 BPM EKG Rhythm: Sinus Rhythm Summary of EKG Findings: No STEMI. Re-Evaluation - Re-Evaluation First Eval Re-Evaluation Time: 10:45 Change: Improved Comment: The patient's chest pain has completely resolved. We discussed admission, but she leaves at 05 tomorrow for a trip to [place], and she doesn' t want to miss it. Second Eval Re-Evaluation Time: 11:03 Comment: The patient states she agrees with admission at this time. Course/Dx - Course Course Of Treatment: The patient is a 58 y/o F presenting to [facility] with a chief complaint of LUE myalgia from the shoulder to the elbow, chest heaviness (not painful), and left-sided headache worsening this morning after having high blood pressure for the last three weeks. She denies fever, chills, erythema of eyes, sore throat, CP, SOB, cough, abdominal pain, N/V, dysuria, hematuria, edema, rash, and dizziness. Hx of HLD. FHx of cardiac disease and HTN in father ( at age 74). No recent medication changes or trauma. Recent tick bite with Doxycycline treatment. Upon physical exam, the patient exhibits no reproducible chest pain. In the ED course, the patient was administered ASA and NTG. Blood work reveals WBC of 3.2, MCH of 32, abs neuts of 1.4, and potassium of 5.1 without any other significant abnormalities. EKG reveals NSR at 74 BPM. At 1100, I discussed the patient's case with Dr. Saravia, hospitalist, and she suggests admission for the patient; the patient agrees with admission, and Dr. Saravia accepts. Risk factors include hypercholesterolemia and family hx. She is diagnosed with chest pain, unspecified. She agrees with the plan and understands the need for admission. - Diagnoses Provider Diagnoses: Chest pain, unspecified - Physician Notifications Discussed Care of Patient With: Lise Saravia - hospitalist Time Discussed With Above Provider: 11:00 Instructed by Provider To: Other - I discussed the patient's case with Dr. Saravai , and she suggests admission for the patient. The patient agrees with admission , and Dr. Saravia accepts. Discharge - Sign-Out/Discharge Documenting (check all that apply): Patient Departure - Patient is accepted for admission by Dr. Saravia. Patient Received Moderate/Deep Sedation with Procedure: No - Discharge Plan Condition: Stable Disposition: ADMITTED TO [facility] - Billing Disposition and Condition Condition: STABLE Disposition: Admitted to [facility] - Attestation Statements Document Initiated by Mariselae: Yes Documenting Scribe: Kasia Clancy Provider For Whom Kylie is Documenting (Include Credential): Dr. Jarrod Serrato MD Scribe Attestation: Kasia Dubois, scribed for Dr. Jarrod Serrato MD on 03/07/19 at 1858. Status of Scribe Document: Ready
[2019-03-07] MEDS ORDERED: Aspirin 81 mg CHEW TAB* 81 MG TAB.CHEW PO ONE (09:25)
[2019-03-07] MEDS ORDERED: Nitroglycerin TAB 0.4 MG* 0.4 MG TAB SL ONE (09:25)
[2019-03-07 09:26] LABS: Albumin 4.3 g/dL (3.2-5.2); Albumin/Globulin Ratio 1.5 (1-3); Calcium 9.9 mg/dL (8.6-10.3); EGFR Non-African American 67.8 (>60); Globulin 2.8 g/dL (2-4); Total Bilirubin 0.8 mg/dL (0.2-1.0); Total Protein 7.1 g/dL (6.4-8.9)
[2019-03-07 09:27] LABS: Potassium 5.1 mmol/L (3.5-5.0)
[2019-03-07] MEDS ORDERED: Morphine INJ* 2 MG/ML 1 ML SYRINGE (TWO MG - NEW SYRINGE VERSION) IV PRN (11:07)
[2019-03-07] MEDS ORDERED: Al Hydrox/Mg Hydrox/Simet LIQ* 30 ML UDC PO PRN (11:07)
[2019-03-07] MEDS ORDERED: NS 0.9% 1000 ML** 1,000 ML IV SCH (11:30)
[2019-03-07 12:08] LABS: Magnesium 2.4 mg/dL (1.9-2.7)
--- NOTE | 2019-03-07 15:04 | HP ---
CC: Dr. Diamond Pandey.* HISTORY AND PHYSICAL: DATE OF ADMISSION: 03/07/19 PRIMARY CARE PROVIDER: Dr. Diamond Pandey. CHIEF COMPLAINT: Shortness of breath and chest pain. HISTORY OF PRESENT ILLNESS: Luz Marina Mars is a 58-year-old female with no significant past medical history, who stated that she has been feeling unwell for the past couple of months. She complains of intermittent right calf cramping, left arm cramping and tingling, and intermittent problems with feeling like she cannot catch her breath. The patient stated that those symptoms occurred independently of each other and usually when she is stationary. The patient stated that for example a couple of days ago, she was doing her laundry and she was walking with baskets of laundry up and down the stairway without any issues. When she sat down and started resting, she started experiencing a sensation of inability to take a deep breath. She stated that she "gets herself out of this feeling" by reciting the alphabet - at this point, she realizes that she actually can breathe and the sensation goes away. Due to those symptoms, she came into the ED today for evaluation. The patient is going to be placed on overnight observation with a diagnosis of chest pain. PAST MEDICAL HISTORY: 1. An evaluation for similar episode of chest pain in 2017 with negative cardiac stress test. 2. Recent bout of diverticulitis in December 2018 that was treated with antibiotics and was associated with left upper quadrant abdominal pain that resolved. 3. The patient had a tic bite noted on her scalp on 03/01/19 and was administered 200 mg of p.o. doxycycline from [facility]. MEDICATIONS: Include: 1. Fiber supplement 1 tablet daily. 2. Vitamin B complex 1 capful daily. ALLERGIES: No known drug allergies. FAMILY HISTORY: The patient's sister of bowel perforation, mother after aspiration pneumonia. SOCIAL HISTORY: The patient denies any tobacco or drug use. She drinks alcohol rarely. 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 She is a full code status. She has 2 adult children and 6 grandchildren. She lists her sister, Zaina Armstrong, as her surrogate. REVIEW OF SYSTEMS: Please see history of present illness. The remaining 12 systems were reviewed with the patient and were otherwise negative. PHYSICAL EXAMINATION GENERAL: The patient is a very pleasant 58-year-old female, who is in no acute distress. Alert, awake, and oriented x3. VITAL SIGNS: Blood pressure of 140/80, heart rate of 65 and regular, respiratory rate 18, oxygen saturation 95% on room air, temperature of 96.6. HEENT: Head atraumatic, normocephalic. Eyes: Pupils are equal and reactive to light and accommodation. Oropharynx clear. Mucosa moist. NECK: Supple. No JVD. No bruits bilaterally. LUNGS: Clear to auscultation bilaterally. CARDIOVASCULAR: Regular rate and rhythm. No murmurs, rubs or gallops. ABDOMEN: Soft, nontender. Bowel sounds are present in all 4 quadrants. EXTREMITIES: No edema. +2 pulses bilaterally. No clubbing or cyanosis. NEUROLOGIC: On neuro evaluation, speech is clear. Cranial nerves II through XII are grossly intact. Motor strength is 5/5 bilaterally. SKIN: On inspection of the skin including the skin of the scalp, no lesions noted. DIAGNOSTIC STUDIES/LAB DATA: Shows sodium of 139, potassium 5.1, chloride 105 , carbon dioxide 28, BUN 12, creatinine 0.86. Liver function test unremarkable and troponin was 0 x2. White blood cell count of 3.2, hemoglobin of 13.9, hematocrit of 40, and platelets of 271,000. The patient's EKG showed normal sinus rhythm with a heart rate of 74 beats per minute with mildly increased T-wave amplitude in leads V2 and V3 comparing with EKG from 2017. Chest x-ray is pending at the time of this dictation. ASSESSMENT AND PLAN: A 58-year-old female with no significant past medical history and negative cardiac stress test 2 years ago, presents with similar symptoms that occurred 2 years ago. It is interesting that the patient's symptoms actually start developing when she is not exercising and we discussed with the patient that she has had problems with stress at work and it is possible that these partially may be anxiety related. The patient stated that she flew to [place] in September and ever since then, she has had intermittent right calf pain. That in conjunction with episodes of shortness of breath, I will obtain a D-dimer and if D-dimer is positive, the patient is going to undergo a CTA to rule out pulmonary embolism. In regards to cardiac workup, the patient is going to be observed on telemetry monitored bed for cardiac stress test in the morning. The patient has mild hyperkalemia and noted that she eats at least 2 bananas a day. At this time, the patient is recommended to try to eat food that has less potassium in it. I will repeat the basic metabolic panel in the morning. For DVT prophylaxis, the patient is at low risk and ambulation is going to be encouraged. Discussed with her and her surrogate, her sister. TIME SPENT: Approximately 65 minutes were spent on admission of this patient, more than half that time was spent [id number] with the patient during the interview and physical exam. [id number]/[facility] #: [id number] MARTINEZ
[2019-03-07] MEDS: Acetaminophen TAB* 325 MG PO PRN ×2 (18:55→23:03)
[2019-03-07] MEDS: Docusate CAP* 100 MG PO SCH (21:10)
[2019-03-08 06:46] LABS: BUN/Creatinine Ratio 21.3 (8-20); Calcium 9.2 mg/dL (8.6-10.3); EGFR African American 89.1 (>60); EGFR Non-African American 73.7 (>60); Potassium 4.6 mmol/L (3.5-5.0)
[2019-03-08] MEDS: Docusate CAP* 100 MG PO SCH (08:29)
[2019-03-08 12:01] VITALS: BP 148/87
--- NOTE | 2019-03-08 13:42 | DS ---
CC: Dr. Diamond Pandey * DISCHARGE SUMMARY: DATE OF ADMISSION: 03/07/19 DATE OF DISCHARGE: 03/08/19 PRIMARY CARE PROVIDER: Dr. Diamond Pandey. DISPOSITION AT DISCHARGE: Home. CONDITION ON DISCHARGE: Stable. DISCHARGE DIAGNOSES: 1. Chest pain with low probability cardiac stress test documented on 03/08/19. 2. Intermittent right calf cramping with negative venous Doppler study for deep venous thrombosis performed on 03/08/19. 3. Intermittent left facial numbness with negative CT brain on 03/08/19. MEDICATIONS AT DISCHARGE: Unchanged from admission and include: 1. Fiber supplement 1 tablet daily. 2. Vitamin B complex 1 capsule daily. LABORATORY DATA AND STUDIES: Performed during the hospital stay included: On 03/08/19, sodium of 141, potassium 4.6, chloride 110, carbon dioxide 28, BUN 17 , creatinine 0.8. Troponin of 0 throughout her hospital stay. The patient's D-dimer was 239. Brain CT obtained on 03/08/19, impression: "No evidence of intracranial mass or hemorrhage is noted." Venous Doppler study obtained of right lower extremity, impression: "No evidence of DVT is identified of the right lower extremity." Nuclear medicine cardiac stress test documented on 03/08/19, impression: "No evidence of fixed or reversible perfusion defect is identified. Normal ejection fraction." HOSPITALIZATION COURSE: Luz Marina Mars is a 58-year-old female, who presented to the hospital complaining of intermittent feeling of shortness of breath, left -sided chest pressure, as well as intermittent right calf cramping and left facial numbness. Those symptoms do not need to occur together, they have been intermittent for the past couple of weeks and they are not exercise related. The patient was placed on overnight observation to rule out cardiac source of the symptoms. The patient's troponins continued to be negative throughout the hospital stay and the patient's cardiac stress was documented on 03/08/19 as low risk. In addition to that to rule out any major pathology in regard to the patient's intermittent left facial numbness, I obtained a CT of the brain that was unremarkable. Please note that at discharge and at admission, the patient was neurologically intact. The patient also has had problems with intermittent right calf cramping and her D- dimer was mildly positive at 230. At that point, Doppler study of the right lower extremity was obtained and was negative for DVT. The patient has had oxygen saturation of 99% on room air and heart rate between 79 and 83. I do not believe that with those vital signs, the patient would have a significant pulmonary embolism. Also, the chest discomfort that the patient described was not pleuritic. At this point, CT angiogram of the chest was not further pursued. By time of discharge, I questioned the possibility of the patient's highly stressful job and possibility of anxiety that could contribute to the patient's symptoms. I recommended for the patient to follow up with her primary care provider for further evaluation. Physical exam at discharge is unchanged from admission. [id number]/[facility] #: [id number] MARTINEZ
== END 2019-03-08 13:28 | disposition home or self-care (01) ==
LOC: ED 08:15 → MEDTELE 11:07
PROVIDERS: ADMIT Internal Medicine; ATTEND Internal Medicine
DX: R07.9 Chest pain, unspecified (principal); R25.2 Cramp and spasm; R20.0 Anesthesia of skin; M79.602 Pain in left arm; R06.02 Shortness of breath; R51 Headache
CPT/HCPCS: 36415; 70450; 71045; 78452; 80048; 80053; 83605; 83735; 84484; 85025; 85379; 93005; 93017; 99283; A9270-GY; A9502; G0378

== ENCOUNTER 2019-10-10 10:40 | Emergency (ER) | payer BC ==
--- OUTSIDE RECORDS SUMMARY | 2019-10-10 10:44 | XMS REPORT | Continuity of Care Document ---
:1960 External Reference #:[id number] Author Name Mona Chaparro M.D. (transmitted by agent of provider Neelima Clifford) Address [address] [facility], [place] [address] Care Team Providers Name Role Phone Mona Chaparro MD - Internal Care Team Information [facility] Medicine Problems Active Problems Provider Date Skin sensation disturbance Ava Melgar MD Onset: 01/23/2016 Social History Type Date Description Comments Sex Unknown ETOH Use Occasionally consumes alcohol Tobacco Use Start: Unknown Patient has never smoked Recreational Drug Use Denies Drug Use Smoking Status Reviewed: 08/31/19 Patient has never smoked Allergies, Adverse Reactions, Alerts Active Allergies Reaction Severity Comments Date Cipro joint poping 05/31/2019 Inactive Allergies NKDA 01/23/2016 Medications Active Medications SIG Qnty Indications Ordering Date Provider Cyclobenzaprine HCL take 1 tablet 7tabs S23.8xxA Mona Chaparro, 2018 5mg by mouth daily M.D. Tablets at night Lisinopril 1 by mouth 30tabs I10 Celina Lombardi MD 07/18/2019 5mg Tablets every day Ibuprofen 200 400-600mg every Unknown 200mg Tablets 6 hours as needed for pain. Super B Complete&Vitamin Unknown C History Medications Amlodipine Besylate 1 by mouth every 30tabs I10 Mona Chaparro, 2018 - day M.D. 07/18/2019 2.5mg Tablets Immunizations CPT Code Status Date Vaccine Lot # [id number] Given 07/18/2019 Influenza Virus Vaccine, Quadrivalent ([id number]), [id number] Derived From Cell [id number] Given 07/05/2019 Tdap - Tetanus/Diptheria/Acellular Pertussis [id number] Vital Signs Date Vital Result Comment 08/31/2019 8:36am Height 62 inches 5'2" Weight 148.00 lb Heart Rate 74 /min BP Systolic Sitting 139 mmHg BP Diastolic Sitting 91 mmHg Pain Level 5 O2 % BldC Oximetry 99 % BMI (Body Mass Index) 27.1 kg/m2 08/08/2019 11:20am Height 62 inches 5'2" Heart Rate 65 /min BP Systolic 132 mmHg BP Diastolic 78 mmHg O2 % BldC Oximetry 98 % Results Test Acquired Date Facility Test Result H/L Range Note Basic Metabolic 08/09/2019 [facility] Sodium 140 mmol/L Normal 135-[address] [place] [address] [phone] Potassium 4.9 mmol/L Normal 3.5-5.0 Chloride 108 mmol/L Normal 101-111 Co2 Carbon Dioxide 30 mmol/L Normal 22-32 Anion Gap 2 mmol/L Normal 2-11 Glucose 93 mg/dL Normal 70-100 Blood Urea Nitrogen 14 mg/dL Normal 6-24 Creatinine 0.72 mg/dL Normal 0.51-0.95 BUN/Creatinine Ratio 19.4 Normal 8-20 Calcium 9.9 mg/dL Normal 8.6-10.3 Egfr Non- 82.9 >60 Egfr 100.3 >60 1 Lyme Disease AB 07/18/2019 [facility] IgG Immunoblot Negative Negative Immunoblot WB [address] [place] [address] [phone] IgG detected against p23 kDa IgM Immunoblot Negative Negative IgM detected against None kDa Lyme Disease Interpretation See Comment 2 Laboratory test 06/03/2019 [facility] Calcium 1.26 Normal 1.16 -1.[address] Ionized mmol/[place] [address] [phone] Pthi 06/03/2019 [facility] Calcium 9.9 mg/dL Normal 8.6-10.[address] ([place] [address] Intact) [phone] PTH Intact 28.0 pg/mL Normal 12-88 Laboratory test 06/03/2019 [facility] PTH Related 0.5 pmol/L < or = [address] Peptide 4.2 [place] [address] [phone] Vitamin D Total 25(Oh) 23.3 ng/mL Normal 20-50 4 Basic Metabolic 05/31/2019 [facility] Sodium 138 mmol/L Normal 135-[address] [place] [address] [phone] Potassium 4.1 mmol/L Normal 3.5-5.0 Chloride 102 mmol/L Normal 101-111 Co2 Carbon Dioxide 29 mmol/L Normal 22-32 Anion Gap 7 mmol/L Normal 2-11 Glucose 99 mg/dL Normal 70-100 Blood Urea Nitrogen 12 mg/dL Normal 6-24 Creatinine 0.84 mg/dL Normal 0.51-0.95 BUN/Creatinine Ratio 14.3 Normal 8-20 Calcium 10.5 mg/dL High 8.6-10.3 Egfr Non- 69.4 >60 Egfr 84.0 >60 5 1 Because ethnic data is not always readily [...] 15-29 5 Kidney failure <15 (or dialysis) 2 Specific serologic response to B. burgdorferi infection is not detected, but cannot rule out early infection during which low or undetectable antibody levels to B. burgdorferi may be present. If clinically indicated, a new serum specimen should be submitted in 7-14 days. ADDITIONAL INFORMATION Per CDC criteria, the Lyme IgG Immunoblot is interpreted as positive if IgG-class antibodies are detected to >=5 B. burgdorferi proteins, and the Lyme IgM Immunoblot is interpreted as positive if IgM-class antibodies are detected to >=2 B. burgdorferi proteins. Immunoblot patterns not meeting these criteria should not be interpreted as positive. Epitopes from certain B. burgdorferi proteins (e.g., p41) are conserved across other bacteria, which may lead to the detection of IgM- and/or IgG-class antibodies on the Lyme disease immunoblots in patients without Lyme disease. Immunoblot should only be ordered on specimens that are positive or equivocal by a FDA-licensed Lyme disease antibody screening test (e.g., EIA). Results of the Lyme IgM immunoblot should not be considered in patients with >= 30 days of symptoms. Test Performed by: [facility] [place] [address] [employer]: Jerrod Robles M.D. Ph.D.; CLIA# [id number] 3 ADDITIONAL INFORMATION This test was developed and its performance characteristics determined by [facility] in a manner consistent with CLIA requirements. This test has not been cleared or approved by the U.S. Food and Drug Administration. Test Performed by: [facility] [place] [place] [address] [employer] Manager: Jerrod Robles M.D. Ph.D.; CLIA# [id number] 4 Total 25-Hydroxyvitamin D2 and D3 (25-OH-VitD) <10 ng/mL (severe deficiency) 10-19 ng/mL (mild to moderate deficiency) 20-50 ng/mL (optimum levels) 51-80 ng/mL (increased risk of hypercalciuria) >80 ng/mL (toxicity possible) 5 Because ethnic data is not always [...] 15-29 5 Kidney failure <15 (or dialysis) Procedures Date Code Description Status 03/08/2019 08548 Treadmill Interp/Report Only Completed 03/08/2019 98184 Stress Test Supervsn W/Out I/R Completed Medical Devices Description No Information Available Encounters Type Date Location Provider Dx Diagnosis Office Visit 07/18/2019 [facility] Internal Celina Lombardi MD L42 Parag [place] 3:00p Medicine - [facility] I10 Essential (primary) hypertension Z23 Encounter for immunization Office Visit 07/05/2019 10:50a [facility] Internal Mona Chaparro I10 Essential (primary) Medicine - Chery Nguyen hypertension L85.8 Other specified epidermal thickening Z23 Encounter for immunization Office Visit 05/31/2019 2:00p [facility] Internal Mona R03.0 Elevated Medicine - Wendy Chaparro blood-pressure Ccmob reading, w/o diagnosis of htn E87.5 Hyperkalemia [facility] R07[facility]9 Chest pain, 9:42a Assdean ya M.D. unspecified Hospitalists M79.661 Pain in right lower leg R29.810 Facial weakness Office Visit 03/07/2019 9:[facility], R06.02 Shortness of Assdean ya M.D. breath Hospitalists R07.9 Chest pain, unspecified M79.661 Pain in right lower leg Assessments Date Code Description Provider 08/31/2019 S23.8xxA Sprain of other specified parts of Mona Chaparro M.D. thorax, initial encounter 08/31/2019 S13.8xxA Sprain of joints and ligaments of Mona Chaparro M.D. other parts of neck, initial encounter 08/08/2019 I10 Essential (primary) hypertension Nurse Visit A 07/18/2019 L42 Parag Lombardi MD 07/18/2019 I10 Essential (primary) hypertension Celina Lombardi MD 07/18/2019 Z23 Encounter for immunization Celina Lombardi MD 07/05/2019 I10 Essential (primary) hypertension Mona Chaparro M.D. 07/05/2019 L85.8 Other specified epidermal Mona Chaparro M.D. thickening 07/05/2019 Z23 Encounter for immunization Mona Chaparro M.D. 07/01/2019 R03.0 Elevated blood-pressure reading, Nurse Visit A without diagnosis of hypertension 05/31/2019 R03.0 Elevated blood-pressure reading, Mona Chaparro M.D. without diagnosis of hypertension 05/31/2019 E87.5 Hyperkalemia Mona Chaparro M.D. 03/08/2019 R07.9 Chest pain, unspecified Lise Saravia M.D. 03/08/2019 R07.9 Chest pain, unspecified Nathalia Hdez MD, [facility] 03/08/2019 M79.661 Pain in right lower leg Lise Saravia M.D. 03/08/2019 R29.810 Facial weakness Lise Saravia M.D. 03/07/2019 R06.02 Shortness of breath Lise Saravia M.D. 03/07/2019 R07.9 Chest pain, unspecified Lise Saravia M.D. 03/07/2019 M79.661 Pain in right lower leg Lise Saravia M.D. Plan of Treatment Future Appointment(s):01/13/2020 9:00 am - Mariana Astorga MD at [facility] Okbwjoxwqsa09/04/2019 - Mona Chaparro M.D.S23.8xxA Sprain of other specified parts of thorax, initial encounterNew Medication:Cyclobenzaprine HCL 5 mg - take 1 tablet by mouth daily at nightComments:discussed heat, ibuprofen and muscle relaxant at night, start working with PT and pay attention to your adpcqctH35.8xxA Sprain of joints and ligaments of other parts of neck, initial encounter Functional Status Description No Information Available Mental Status Description No Information Available Referrals Description No Information Available
--- OUTSIDE RECORDS SUMMARY | 2019-10-10 10:44 | XMS REPORT | Continuity of Care Document ---
:1960 External Reference #:[id number] Author Name Roxann Platt M.D., FACP (transmitted by agent of provider Cata Evans) Address [address], [place] [address] Care Team Providers Name Role Phone Mona Chaparro MD - Internal Care Team Information Civil Engineering Specialist Medicine Problems Active Problems Provider Date Skin sensation disturbance Ava Melgar MD Onset: 01/23/2016 Social History Type Date Description Comments Sex Unknown ETOH Use Occasionally consumes alcohol Tobacco Use Start: Unknown Patient has never smoked Recreational Drug Use Denies Drug Use Smoking Status Reviewed: 09/23/19 Patient has never smoked Allergies, Adverse Reactions, Alerts Active Allergies Reaction Severity Comments Date Cipro joint poping 05/31/2019 Inactive Allergies NKDA 01/23/2016 Medications Active Medications SIG Qnty Indications Ordering Date Provider Lisinopril 2 by mouth 90tabs I10 Mona Chaparro, 09/06/2019 10mg Tablets every day M.D. Cyclobenzaprine HCL take 1 tablet 7tabs S23.8xxA Mona Chaparro, 2018 5mg by mouth daily M.D. Tablets at night Ibuprofen 200 400-600mg every Unknown 200mg Tablets 6 hours as needed for pain. Super B Complete&Vitamin Unknown C History Medications Lisinopril 1 by mouth every 90tabs I10 Mona Chaparro, 07/18/2019 - 5mg Tablets day M.D. 09/06/2019 Amlodipine Besylate 1 by mouth every 30tabs I10 Mona Chaparro, 2018 - day M.D. 07/18/2019 2.5mg Tablets Immunizations CPT Code Status Date Vaccine Lot # [id number] Given 07/18/2019 Influenza Virus Vaccine, Quadrivalent ([id number]), [id number] Derived From Cell [id number] Given 07/05/2019 Tdap - Tetanus/Diptheria/Acellular Pertussis [id number] Vital Signs Date Vital Result Comment 09/23/2019 3:35pm Weight 147.44 lb Heart Rate 66 /min BP Systolic 126 mmHg left arm manual BP Diastolic 80 mmHg left arm manual Body Temperature 97.8 F O2 % BldC Oximetry 95 % 09/23/2019 11:40am Heart Rate 80 /min BP Systolic Sitting 152 mmHg Rue reg cuff BP Diastolic Sitting 94 mmHg Rue reg cuff BP Systolic Recheck 142 mmHg Lue reg cuff BP Diastolic Recheck 95 mmHg Lue reg cuff O2 % BldC Oximetry 97 % Results Test Acquired Date Facility Test Result H/L Range Note Order 09/23/2019 [facility] EKG <pending> Basic Metabolic 08/09/2019 [facility] Sodium 140 mmol/L Normal 135-[address] [place] [address] [phone] Potassium 4.9 mmol/L Normal 3.5-5.0 Chloride 108 mmol/L Normal 101-111 Co2 Carbon Dioxide 30 mmol/L Normal 22-32 Anion Gap 2 mmol/L Normal 2-11 Glucose 93 mg/dL Normal 70-100 Blood Urea Nitrogen 14 mg/dL Normal 6-24 Creatinine 0.72 mg/dL Normal 0.51-0.95 BUN/Creatinine Ratio 19.4 Normal 8-20 Calcium 9.9 mg/dL Normal 8.6-10.3 Egfr Non- 82.9 >60 Egfr 100.3 >60 1 Lyme Disease AB 07/18/2019 [facility] IgG Immunoblot Negative Negative Immunoblot WB [address] [place] [address] [phone] IgG detected against p23 kDa IgM Immunoblot Negative Negative IgM detected against None kDa Lyme Disease Interpretation See Comment 2 Laboratory test 06/03/2019 [facility] Calcium 1.26 Normal 1.16 -1.[address] Ionized mmol/[place] [address] [phone] Pthi 06/03/2019 [facility] Calcium 9.9 mg/dL Normal 8.6-10.[address] ([place] [address] Intact) [phone] PTH Intact 28.0 pg/mL Normal 12-88 Laboratory test 06/03/2019 [facility] PTH Related 0.5 pmol/L < or = 3 finding [address] [facility] Peptide 4.2 [place] [address] [phone] Vitamin D Total 25(Oh) 23.3 ng/mL Normal 20-50 4 Basic Metabolic 05/31/2019 [facility] Sodium 138 mmol/L Normal 135-145 Panel [address] [place] [address] [phone] Potassium 4.1 mmol/L Normal 3.5-5.0 Chloride 102 [...] 30 days of symptoms. Test Performed by: [facility] [place] [address] State Editor: Jerrod Robles M.D. Ph.D.; CLIA# [id number] 3 ADDITIONAL INFORMATION This test was developed and its performance characteristics determined by [facility] in a manner consistent with CLIA requirements. This test has not been cleared or approved by the U.S. Food and Drug Administration. Test Performed by: [facility] [place] [address] State Editor: Jerrod Robles M.D. Ph.D.; CLIA# [id number] 4 Total 25-Hydroxyvitamin D2 and D3 (25-OH-VitD) [...] (or dialysis) Procedures Date Code Description Status 09/23/2019 16975 EKG Tracing & Interpretation Completed Medical Devices Description No Information Available Encounters Type Date Location Provider Dx Diagnosis Office Visit 08/31/2019 [facility] Internal Mona Chaparro, S23.8xxA Sprain of other 8:30a Medicine - Chery Nguyen specified parts of thorax, initial encounter S13.8xxA Sprain of joints and ligaments of oth prt neck, init encntr Office Visit 07/18/2019 3:00p [facility] Internal Celina Lombardi MD L42 P[facility]riasis [facility] Essential (primary) hypertension Z23 Encounter for immunization Office Visit 07/05/2019 10:50a [facility] Internal Mona Chaparro, I10 Essential (primary) Medicine - Chery Nguyen hypertension L85.8 Other specified epidermal thickening Z23 Encounter for immunization Office Visit 05/31/2019 2:00p [facility] Mona R03.0 Elevated Slime Chaparro M.D. blood-pressure Ccmob reading, w/o diagnosis of htn E87.5 Hyperkalemia Assessments Date Code Description Provider 09/23/2019 R07.9 Chest pain, unspecified Roxann Platt M.D., FACP 09/15/2019 I10 Essential (primary) hypertension Nurse Visit A 08/31/2019 S23.8xxA Sprain of other specified parts of Mona Chaparro M.D. thorax, initial encounter 08/31/2019 S13.8xxA Sprain of joints and ligaments of other Mona Chaparro M.D. parts of neck, initial encounter 08/08/2019 I10 Essential (primary) hypertension Nurse Visit A 07/18/2019 L42 Pityriasis rosea Celina Lombardi MD 07/18/2019 I10 Essential (primary) hypertension Celina Lombardi MD 07/18/2019 Z23 Encounter for immunization Celina Lombardi MD 07/05/2019 I10 Essential (primary) hypertension Mona Chaparro M.D. 07/05/2019 L85.8 Other specified epidermal thickening Mona Chaparro M.D. 07/05/2019 Z23 Encounter for immunization Mona Chaparro M.D. 07/01/2019 R03.0 Elevated blood-pressure reading, without Nurse Visit A diagnosis of hypertension 05/31/2019 R03.0 Elevated blood-pressure reading, without Mona Chaparro M.D. diagnosis of hypertension 05/31/2019 E87.5 Hyperkalemia Mona Chaparro M.D. Plan of Treatment Future Appointment(s):11/24/2019 3:30 pm - Roxann Platt M.D., FACP at [facility] 9:00 am - Mariana Astorga MD at [facility] Okqcslyamdb83/27/2019 - Roxann Platt M.D., FACPR07.9 Chest pain, unspecifiedComments:ATYPICAL CHEST PAIN:We talked about the possibility of mitral valve prolapse syndrome which is sometimes associated with the symptoms you describe. It is not clear why this occurs. Your cardiogram today was normal.Maintaining adequate hydration may decrease your symptoms.It is very reassuring that your stress test was negative in February as this is best way to assess the functional capacity of your heart. An echocardiogram (ultrasound of the heart) can sometimes be helpful in characterizing the anatomy of the valves and the motion of the heart wahl.I have given you some information from a website called [employer].Follow up:as needed: 1-2 months Functional Status Description No Information Available Mental Status Description No Information Available Referrals Description No Information Available
[2019-10-10 10:52] VITALS: BP 123/83
--- NOTE | 2019-10-10 11:06 | UC ---
Lower Extremity/Ankle HPI - HPI Summary HPI Summary: Ms. Mars comes in with 2 days of pain in her mid posterior right calf. She has no known injury. She has no other complaints. She had surgery last April. - History of Current Complaint Chief Complaint: UCLowerExtremity Stated Complaint: RT CALF ISSUE Time Seen by Provider: 10/10/19 10:59 Hx Obtained From: Patient Hx Last Menstrual Period: MENOPAUSE Onset/Duration: Gradual Onset, Lasting Days Severity Initially: Moderate Severity Currently: Moderate Pain Intensity: 7 Aggravating Factor(s): Standing, Ambulation Alleviating Factor(s): Rest Able to Bear Weight: Yes - Allergies/Home Medications Allergies/Adverse Reactions: Allergies Allergy/AdvReac Type Severity Reaction Status Date / Time No Known Allergies Allergy Verified 10/10/19 10:53 Home Medications: Home Medications Lisinopril TAB* [Prinivil TAB 5 MG*] 20 mg PO DAILY 10/10/19 [History Confirmed 10/10/19] PMH/Surg Hx/FS Hx/Imm Hx Cardiovascular History: Hypertension Other History Of: Negative For: HIV, Hepatitis B, Hepatitis C - Surgical History Surgical History: Yes Surgery Procedure, Year, and Place: TUBAL LIGATION, LEFT KNEE ARTHROSCOPY titanium disc in neck x 3 - Family History Known Family History: Positive: None, Cardiac Disease - father, Hypertension Negative: Diabetes Family History: Mother: Breast CA. Father: Heart disease. Sister: Lupus. Ulcer. - Social History Alcohol Use: Occasionally Substance Use Type: None Smoking Status (MU): Never Smoked Tobacco Have You Smoked in the Last Year: No - Immunization History Most Recent Influenza Vaccination: 2016 Most Recent Tetanus Shot: utd Review of Systems All Other Systems Reviewed And Are Negative: Yes Constitutional: Positive: Negative Skin: Positive: Negative Respiratory: Positive: Negative Cardiovascular: Positive: Negative Motor: Positive: Negative Neurovascular: Positive: Negative Musculoskeletal: Positive: Negative Physical Exam - Summary Physical Exam Summary: She is nontoxic in appearance with stable vital signs Triage Information Reviewed: Yes Appearance: Well-Appearing, No Pain Distress Vital Signs: Initial Vital Signs Temp 98.7 F 10/10/19 10:50 Pulse 81 10/10/19 10:50 Resp 18 10/10/19 10:50 BP 123/83 10/10/19 10:50 Pulse Ox 100 10/10/19 10:50 Vital Signs Reviewed: Yes Respiratory Exam: Normal Cardiovascular Exam: Normal Musculoskeletal Exam: Other - Mild tenderness right calf, no tenderness in the common femoral canal Neurological Exam: Normal Skin Exam: Normal Diagnostics - Radiology right lower extremity venous Doppler Radiology Interpretation Completed By: Radiologist - No DVT Lower Extremity Course/Dx - Course Course Of Treatment: This is likely a musculoskeletal issue and I recommended conservative treatment. - Differential Dx/Diagnosis Provider Diagnosis: Calf pain Discharge ED - Sign-Out/Discharge Documenting (check all that apply): Patient Departure All imaging exams completed and their final reports reviewed: Yes - Discharge Plan Condition: Stable Disposition: HOME Patient Education Materials: Leg Sprain (ED) Referrals: Mona Chaparro MD [Primary Care Provider] - - Billing Disposition and Condition Condition: STABLE Disposition: Home
== END 2019-10-10 12:12 | disposition home or self-care (01) ==
LOC: UCEAST 10:40
DX: M79.661 Pain in right lower leg (principal); I10 Essential (primary) hypertension; Z79.899 Other long term (current) drug therapy
CPT/HCPCS: 99211; G0463